=== PATIENT | female | born 1950 | race Caucasian/White ===

== ENCOUNTER 2020-11-04 21:34 | Inpatient (IN) | payer MEDICARE, SELFPAY ==
--- NOTE | ~2020-11-04 | XR_ITS ---
EXAMINATION: XR chest 1V portable EXAM DATE: 11/07/2020 09:50 INDICATION: Pneumonia, shortness of breath. TECHNIQUE: Portable AP frontal chest x-ray was obtained. Comparison is made to prior examination from 11/04/2020. FINDINGS: There has been improvement in the large amount of right upper lobe consolidation with small regions of cavitation, probably improving pneumonia. Follow-up is indicated to resolution to exclude any underlying chronic process such as cancer. Left lung is clear. There is no pneumothorax suspecte d. There are no pleural effusions. Cardiomediastinal silhouette is normal. There are no osseous abnor malities identified. IMPRESSION: Large right upper lobe cavitary consolidation, mild interval improvement. Follow-up to re solution. Reviewed, dictated and finalized at location B. NISTRATIVE SUPPORT TECHNICIAN IMPRESSION: Large right upper lobe cavitary consolidation, mild interval improv ement. Follow-up to resolution.
--- NOTE | ~2020-11-04 | CT_ITS ---
EXAMINATION: CTA chest PE protocol EXAM DATE: 11/04/2020 23:45 INDICATION: Hemoptysis, pneumonia, evaluate for PE . TECHNIQUE: Spiral CTA of the chest (pulmonary arteries) was performed with 100 cc Omnipaque 350 intr avenous contrast injection. Images were acquired during the pulmonary arterial phase. Coronal maxi mum intensity projection 3D-reconstructions were created by the technologist on dedicated workstation . Axial, coronal and sagittal reformatted images were reviewed. The dose-length product (DLP) for t his examination was 182.25 mGy-cm. The exposure was tailored according to patient size (auto mA exp osure control), and iterative reconstruction (ASIR) was used as additional dose reduction technique. Comparison is made to prior examination from CT thorax 2013. FINDINGS: Pulmonary arteries are well opacified and without intraluminal filling defects. No thora cic aortic dissection. There is extensive right upper lobe confluent airspace disease with regions o f cavitation. There is smaller amount of right lower lobe airspace disease, the same process. No evid ence of chest wall invasion. Most likely necrotic pneumonia, but follow-up is indicated to exclude po ssibility of cancer. There is moderate emphysema. There are no pleural or pericardial effusions. T racheobronchial tree is patent. There is no mediastinal, hilar or axillary lymphadenopathy. There is no pneumothorax. Heart normal in size. The upper abdomen demonstrates 2 peripherally partiall y calcified internally fluid density regions measuring about 1.5 cm, likely benign. One of these was imaged on prior study and is unchanged There is thoracic spondylosis without osteoblastic or osteoly tic lesions identified. IMPRESSION: 1. Multi segmental right upper lobe, subsegmental right lower lobe airspace disease appearance most consistent with necrotic pneumonia. Follow-up exam is indicated to exclude any underlying cancer. 2. Moderate emphysema. 3. No pulmonary emboli. Reviewed, dictated and finalized at location G. CHASER IMPRESSION: 1. Multi segmental right upper lobe, subsegmental right lower lobe airspace di sease appearance most consistent with necrotic pneumonia. Follow-up exam is ind icated to exclude any underlying cancer. 2. Moderate emphysema. 3. No pulmonary emboli.
--- NOTE | ~2020-11-04 | XR_ITS ---
EXAMINATION: XR chest 2V EXAM DATE: 11/04/2020 22:15 INDICATION: Coughing up blood, diaphoretic. TECHNIQUE: Frontal and lateral projections of the chest obtained and reviewed. Comparison is made to prior examination from 10/13/2012. FINDINGS: There is extensive right upper lobe opacity with apical capping, probably regions of cavit ation. There is some rightward mediastinal, tracheal deviation, indicating some component of fibrosis to this region. Differential diagnosis includes chronic infectious process, acute on chronic infecti on, and cancer. This is new compared to 2013. Left lung is clear. Cardiomediastinal silhouette is normal. There is no pneumothorax suspected. There are no pleural effusions. There are no osseous abnormalities identified. IMPRESSION: Large amount of right upper lobe airspace disease, could be chronic infection, acute on chronic infection, or cancer. A follow-up chest CT with contrast should be obtained. Reviewed, dictated and finalized at location A. ONAL ASSISTANT IMPRESSION: Large amount of right upper lobe airspace disease, could be chroni c infection, acute on chronic infection, or cancer. A follow-up chest CT with c ontrast should be obtained.
[2020-11-04 21:42] VITALS: BP 112/71; PULSE 99; RESP 16; TEMP 36.1; O2SAT 86
--- NOTE | 2020-11-04 21:55 | ECG_ITS ---
Measurements Intervals [place] Rate: 80 P: 64 LA: 156 QRS: 53 QRSD: 71 T: 51 QT: 391 QTc: 454 Interpretive Statements SINUS RHYTHM BORDERLINE ST-T WAVE ABNORMALITY- ANT/INF LEADS BASELINE ARTIFACT- I, II, III, AVR, AVL, AVF, V1-V6 BORDERLINE ECG Electronically Signed On 11-05-2020 8:01:29 LEGAL MEDIATOR by Cal Starr D.O.
--- NOTE | 2020-11-04 22:15 | PC.NURSE ---
pt to xray at this time
[2020-11-04 22:35] LABS: Basophils Absolute Auto 0.1 K/mm3 (0.0-0.1); Basophils Percent Auto 0.4 % (0.2-1.2); Eosinophils Percent Auto 0.3 % (0-4.4); Hematocrit 32.5 % (37.0-47.0); Hemoglobin 10.6 g/dL (12.0-15.0); INR 1.2; Immature Granulocyte Absolute 0.07 K/mm3 (0.00-0.031); Immature Granulocyte Percent A 0.5 % (0-0.5); Lymphocytes Absolute Auto 3.13 K/mm3 (0.9-3.2); Lymphocytes Percent Auto 22.7 % (18.3-44.2); Mean Corpuscular HGB Conc 32.6 g/dl (32-36); Mean Corpuscular Hemoglobin 30.6 pg (26-34); Mean Corpuscular Volume 93.9 fl (80-100); Mean Platelet Volume 9.5 fl (7.4-10.4); Monocytes Absolute Auto 0.8 K/mm3 (0.1-0.6); Monocytes Percent Auto 5.7 % (2.6-8.5); Neutrophils Absolute Auto 9.7 K/mm3 (1.3-6.7); Neutrophils Percent Auto 70.4 % (45.5-73.1); Platelet Count Result 268 k/mm3 (150-375); Prothrombin Time 15.5 Seconds (11.1-14.7); Red Blood Count 3.46 M/mm3 (4.2-5.4); Red Cell Distribution Width 14.7 % (11.5-14.5); White Blood Count 13.8 K/mm3 (4.5-10.0)
[2020-11-04 22:36] LABS: Partial Thromboplastin Time 38.2 SECONDS (22.3-36.8)
[2020-11-04 22:43] LABS: Anion Gap 2 mmol/L (8-16); Blood Urea Nitrogen 11 mg/dL (7-17); Calcium 7.1 mg/dL (8.4-10.2); Carbon Dioxide 38 mmol/L (22-30); Chloride 93 mmol/L (98-107); Estimated Glomerular Filt Rate > 60; Glucose 140 mg/dL (65-105); Potassium 2.6 mmol/L (3.4-5.0); Sodium 133 mmol/L (137-145)
[2020-11-04 23:17] VITALS: BP 131/85; PULSE 95; RESP 16; O2SAT 96
[2020-11-04] MEDS: POTASSIUM CHLORIDE 20 MEQ PACKET (FOR LIQUID) 40 MEQ PO (23:21)
[2020-11-05] VITALS (14 sets, daily range): BP systolic 92–128; BP diastolic 68–79; PULSE 75–97; RESP 16–20; TEMP 36.1–36.7; O2SAT 92–98; BMI 20.5
[2020-11-05] MEDS: SODIUM CHLORIDE 0.9% IV 500 ML 999 ML IV CONT (00:47)
--- NOTE | 2020-11-05 01:30 | PC.NURSE ---
Pt c/o burning at IV site where KCL is running. Okay per MD to run with IV fluids and slow down rate. Rate slowed down to 85mls/hr. Pt notes relief.
--- NOTE | 2020-11-05 01:49 | ED.GENADULT ---
HPI - General Adult General Chief complaint: Unspecified Stated complaint: coughing up blood Time Seen by Provider: 11/04/20 23:10 History of Present Illness HPI narrative: Patient is 69-year-old female who presents the emergency department with chief complaint of hemoptysis. The patient reports that recently she was seen at [facility] and was to be admitted at that facility for a pneumonia versus lung mass. The patient states she has been coughing up blood and because they were going to place her on a Covid observation unit she decided to sign out AGAINST MEDICAL ADVICE. Patient states that she was treated with some oral antibiotics but stated that she is continued to have hemoptysis. Patient states that she came to our facility today because this is continued on and she is concerned about Related Data Home Medications Medication Instructions Recorded Confirmed aspirin 81 mg tablet,delayed 81 mg PO DAILY 08/18/19 06/06/20 release duloxetine 60 mg capsule,delayed 60 mg PO DAILY 08/18/19 06/06/20 release fentanyl 100 mcg/hr transdermal 1 patch TRANSDERM Q72H 08/18/19 06/06/20 patch gabapentin 800 mg tablet 800 mg PO BID 08/18/19 06/06/20 oxycodone-acetaminophen 10 mg-325 1 tablet PO Q6H PRN tablet 08/18/19 06/06/20 mg tablet Allergies Allergy/AdvReac Type Severity Reaction Status Date / Time amoxicillin Allergy Unknown Unknown Verified 09/19/20 14:38 erythromycin base Allergy Unknown Unknown Verified 09/19/20 14:38 lisinopril Allergy Unknown cough Verified 09/19/20 14:38 nitrofurantoin Allergy Unknown Unknown Verified 09/19/20 14:38 Review of Systems Review of Systems: Narrative: A 10 system review of systems was completed on the patient and is negative except for what is stated in the HPI. Nursing and ancillary documentation was reviewed. [facility] Past Medical History Medical History (Updated 11/05/20 @ 01:57 by Andi Iverson MD) H/O cyst of breast Surgical History Surgical History H/O cardiac catheterization H/O dilation and curettage H/O tubal ligation Hx of cholecystectomy Family History Family History Mother Diabetes mellitus Family history of coronary artery disease Father Family history of alcoholism Social History Social History Smoking status: Former smoker Alcohol intake: never Comments Patient has history of melanoma on her back that she had excised and then treated with chemotherapy Exam Narrative: Exam Narrative: GENERAL: Well-appearing, well-nourished, and in no acute distress. HEAD: Normocephalic, atraumatic. EYES: PERRLA and EOMI. ENT: Nares clear, no rhinorrhea or epistaxis. Mucous membranes moist. NECK: Supple. CHEST: Clear to auscultation. No respiratory distress. HEART: Regular rate and rhythm. No murmur heard. Normal peripheral pulses. ABDOMEN: Soft, nontender, nondistended, normal active bowel sounds. EXTREMITIES: Normal range of motion. No edema. SKIN: Warm, dry, no rash. NEURO: No focal deficits. Alert and oriented x3. PSYCH: Normal mood and affect. Course Course Emergency Course: CTA of the chest showed evidence of a necrotic pneumonia Vital Signs Vital signs: Vital Signs Temperature 36.1 C L 11/04/20 21:42 Pulse Rate 99 11/04/20 21:42 Respiratory Rate 16 11/04/20 21:42 Blood Pressure 112/71 11/04/20 21:42 Pulse Oximetry 86 L 11/04/20 21:42 Temperature 36.1 C L 11/04/20 21:42 Pulse Rate 95 11/04/20 23:17 Respiratory Rate 16 11/04/20 23:17 Blood Pressure 131/85 11/04/20 23:17 Pulse Oximetry 96 11/04/20 23:17 Medical Decision Making Vital Signs Vital Signs: Vital Signs Temperature 36.1 C L 11/04/20 21:42 Pulse Rate 99 11/04/20 21:42 Respiratory Rate 16 11/04/20 21:42 Blood Pressure 112/71 11/04
--- NOTE | 2020-11-05 03:32 | PC.NURSE ---
KCL still running at time of admission. Receiving nurse notified. Also unable to collect 2nd set of blood cultures at this time. Attempts x2 in ED. notified.
--- NOTE | 2020-11-05 03:45 | PC.NURSE ---
This patient, Yas Haywood, was admitted to 3 [facility] Surg Room 319-01. Patient/family oriented to hospital policies and general routines including ID bracelet, bed and alarms, visiting hours, pain management, procedures, bathroom and other care routines, personal items, smoking policy, room service/diet, and visiting hours. Information on how to activate the Rapid Response Team has been discussed. Patient/Family are encouraged to report perceived risks to care and to ask questions if they do not understand what they are told or what they should do.
[2020-11-05] MEDS: CLINDAMYCIN 600 MG/NS 50 ML 600 MG/50 ML PIGGYBACK 100 MG IVPB (06:19)
[2020-11-05 07:39] LABS: Glucose Point of Care 112 (65-105)
--- NOTE | 2020-11-05 08:38 | PM.IMHP ---
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 She is a poor historian and is unable to provide many details regarding her hospitalization, simply stating I haven't been feeling good for a while. She requested I call her who would be better able to provide information. He reports that on 09/17/20, she began having intermittent hemoptysis. She was hospitalized in early October at an outside facility for right upper lobe pneumonia, but was also informed this may be a recurrence of her lung cancer. It was recommended she have a bronchoscopy, however she did not wish to proceed with this and left against medical advice. She discussed with her PCP who advised that she seek emergency care so that she may be admitted to the hospital for further evaluation. Her hemoptysis persisted. She also had productive cough. She has not had fevers or chills. She denies shortness of breath, orthopnea, PND, chest pain, or palpitations. Review of Systems Review of Systems: Narrative: Her reports that she has lost 5-8 pounds in about 2 months. She reports poor appetite. No abdominal pain, nausea, vomiting, fever or chills. No recent travel. No anosmia or dysguesia. No known covid-19 contacts. Denies dysuria, hematuria, urgency, frequency. Last BM was 1 day ago. Denies diarrhea. She denies headaches. Denies myalgia. She denies depression. She is quite anxious. She complains of shakiness that she said began after having a breathing treatment. She reports being nervous about being in the hospital and away from her . [facility] Past Medical History Medical History (Updated 11/05/20 @ 11:01 by Jovita Snyder PA-C) CAD (coronary artery disease) With stents a few years ago DM w/o complication type II, uncontrolled Essential (primary) hypertension H/O cyst of breast Hyperlipidemia Malignant melanoma metastatic to lung Peripheral neuropathy Surgical History Surgical History H/O cardiac catheterization H/O dilation and curettage H/O tubal ligation Hx of cholecystectomy Family History Family History (Updated 11/05/20 @ 11:05 by Jovita Snyder PA-C) Mother Diabetes mellitus Family history of coronary artery disease Father Family history of alcoholism Son Aortic aneurysm Social History Social History (Updated 11/05/20 @ 13:21 by Jovita Snyder PA-C) Social History: Ms. Haywood lives at home with her . She is independent in her ADLs. She designates her as her surrogate decision maker and would like to be a DNR. She has two sons, one of whom several years ago. Smoking packs per day: 0.5 Smoking cigarettes per day: 10.0 Years smoked: 30 Smoking pack-years: 15.00 Smoking status: Former smoker Tobacco type: cigarettes Alcohol intake: former Substance use: never Living arrangements: with family Occupation/Education: retired Gender identity (if verbalized by the patient): Female Spiritual care concerns: No Meds Home Medications and Allergies Home Medications Medication Instructions Recorded Confirmed Type aspirin 81 mg tablet,delayed 81 mg PO DAILY 08/18/19 11/05/20 History release duloxetine 60 mg capsule,delayed 60 mg PO DAILY 08/18/19 11/05/20 History release gabapentin 800 mg tablet 800 mg PO BID 08/18/19 11/05/20 History oxycodone-acetaminophen 10 mg-325 1 tablet PO Q6H PRN tablet 08/18/19 11/05/20 History mg tablet blood sugar diagnostic #100 each 11/04/1911/05
[2020-11-05] MEDS: IPRATROPIUM BR 0.02% INH SOLN 0.5 MG/2.5 ML VIAL INHALATION ×3 (09:05→20:48)
[2020-11-05] MEDS: ALBUTEROL SULFATE NEB 2.5 MG/0.5 ML INH 5 MG INHALATION ×3 (09:05→20:48)
[2020-11-05 10:03] LABS: Alanine Aminotransferase 11 U/L (4-35); Albumin Level 2.8 g/dL (3.5-5.1); Alkaline Phosphatase 93 U/L (38-126); Anion Gap 2 mmol/L (8-16); Aspartate Amino Transferase 22 U/L (14-36); Bilirubin,Total 0.5 mg/dL (0.2-1.3); Blood Urea Nitrogen 9 mg/dL (7-17); Calcium 6.8 mg/dL (8.4-10.2); Carbon Dioxide 33 mmol/L (22-30); Chloride 97 mmol/L (98-107); Estimated CRCL calculation 76 ml/min; Estimated Glomerular Filt Rate > 60; Glucose 88 mg/dL (65-105); Magnesium 0.7 mg/dL (1.6-2.3); Potassium 3.4 mmol/L (3.4-5.0); Sodium 132 mmol/L (137-145)
[2020-11-05] MEDS: LEVOTHYROXINE SODIUM 100 MCG TABLET PO (10:06)
[2020-11-05] MEDS: ENOXAPARIN 40 MG/0.4 ML SYRINGE SUB-Q (10:06)
[2020-11-05] MEDS: CLOPIDOGREL BISULFATE 75 MG TABLET PO (10:06)
[2020-11-05] MEDS: ASPIRIN 81 MG ENTERIC TABLET PO (10:06)
[2020-11-05] MEDS: METOPROLOL SUCCINATE EXT REL 100 MG TABCR PO (10:07)
[2020-11-05] MEDS: PANTOPRAZOLE 40 MG TABLET PO (10:07)
[2020-11-05] MEDS: ROSUVASTATIN 10 MG TABLET PO (10:07)
[2020-11-05 10:12] LABS: Basophils Percent Auto 0.3 % (0.2-1.2); Eosinophils Percent Auto 0.3 % (0-4.4); Hematocrit 31.8 % (37.0-47.0); Hemoglobin 10.2 g/dL (12.0-15.0); Immature Granulocyte Absolute 0.13 K/mm3 (0.00-0.031); Lymphocytes Absolute Auto 3.54 K/mm3 (0.9-3.2); Mean Corpuscular HGB Conc 32.1 g/dl (32-36); Mean Corpuscular Hemoglobin 30.1 pg (26-34); Mean Corpuscular Volume 93.8 fl (80-100); Mean Platelet Volume 9.7 fl (7.4-10.4); Monocytes Absolute Auto 0.7 K/mm3 (0.1-0.6); Monocytes Percent Auto 5.3 % (2.6-8.5); Neutrophils Absolute Auto 8.7 K/mm3 (1.3-6.7); Neutrophils Percent Auto 66.1 % (45.5-73.1); Platelet Count Result 267 k/mm3 (150-375); Red Blood Count 3.39 M/mm3 (4.2-5.4); Red Cell Distribution Width 14.6 % (11.5-14.5); White Blood Count 13.1 K/mm3 (4.5-10.0)
[2020-11-05 11:49] LABS: Glucose Point of Care 167 (65-105)
[2020-11-05] MEDS: MAGNESIUM SULF 2 GM/WATER 50ML 2 GM/50 ML BAG IVPB (12:28)
[2020-11-05] MEDS: POTASSIUM CHLORIDE 20 MEQ TABLET PO (12:28)
--- NOTE | 2020-11-05 15:25 | PM.CNPUL ---
Assessment and Plan Assessment and plan (1) Community acquired bacterial pneumonia: Code(s): J15.9 - Unspecified bacterial pneumonia Status: Acute Assessment and Plan: right-sided extensive upper lobe and right lower lobe pneumonia. She was started on Levaquin and clindamycin on admission but I prefer to keep the Levaquin, discontinue clindamycin and start vancomycin. Sputum culture will be ordered as well as urine pneumococcal antigen and Legionella urine antigen. Will continue to monitor. I see no evidence of endobronchial lesions on CT of the chest and no evidence of metastatic disease although cannot be completely sure that nothing is hiding in the pneumonia. History of Present Illness History of Present Illness Consult date: 11/05/20 Chief complaint: necrotic pneumonia Narrative: this is a pleasant 69-year-old female with a history of COPD, melanoma, chronic pain, hyperlipidemia, coronary artery disease status post PCI with 4 stents placed in the past Who presents with mild hemoptysis. She had a CT of the chest which showed no pulmonary embolism but extensive right upper lobe pneumonia with a right lower lobe infiltrate as well. It was reported as necrotizing pneumonia but clinically she is not presenting that way.She describes the hemoptysis as a quarter-size which is not very significant but it did start out with a productive cough at 1st. She denies loss of taste or smell, fevers, chills, night sweats or nausea or vomiting. She last had chemotherapy about 10 months ago for melanoma. She says the melanoma may have spread to her lungs and that it was being followed with outside imaging but she was not very clear. Review of Systems Review of Systems: All systems reviewed & are unremarkable except as noted in HPI and below PMFSH Past Medical History Medical History (Updated 11/06/20 @ 16:26 by Jovita Snyder PA-C) CAD (coronary artery disease) With stents a few years ago DM w/o complication type II, uncontrolled Essential (primary) hypertension H/O cyst of breast Hyperlipidemia Hypothyroidism Malignant melanoma metastatic to lung Peripheral neuropathy Surgical History Surgical History H/O cardiac catheterization H/O dilation and curettage H/O tubal ligation Hx of cholecystectomy Family History Family History (Updated 11/05/20 @ 11:05 by Jovita Snyder PA-C) Mother Diabetes mellitus Family history of coronary artery disease Father Family history of alcoholism Son Aortic aneurysm Social History Social History (Updated 11/05/20 @ 13:21 by Jovita Snyder PA-C) Social History: Ms. Haywood lives at home with her . She is independent in her ADLs. She designates her as her surrogate decision maker and would like to be a DNR. She has two sons, one of whom several years ago. Smoking packs per day: 0.5 Smoking cigarettes per day: 10.0 Years smoked: 30 Smoking pack-years: 15.00 Smoking status: Former smoker Tobacco type: cigarettes Alcohol intake: former Substance use: never Living arrangements: with family Occupation/Education: retired Gender identity (if verbalized by the patient): Female Spiritual care concerns: No Meds Home Medications and Allergies Home Medications Medication Instructions Recorded Confirmed Type aspirin 81 mg tablet,delayed 81 mg PO DAILY 08/18/19 11/05/20 History release duloxetine 60 mg capsule,delayed 60 mg PO DAILY 08/18/19 11/05/20 History release gabapentin 800 mg tablet 800 mg PO BID 08/18/19 11/05/20 History oxycodone-acetaminophen 10 mg-325 1 tablet PO Q6H PRN tablet 08/18/19 11/05/20 History mg tablet blood sugar diagnostic #100 each 11/04/19 11/05/20 Rx clopidogrel 75 mg tablet 75 mg PO DAILY #90 tablet 11/09/19 11/05/20 Rx trazodone 50 mg tablet 50 mg PO .qhs #90 tablet 01/04/20 11/05/20 Rx amadou
[2020-11-05 17:20] LABS: Glucose Point of Care 114 (65-105)
[2020-11-05 19:10] LABS: SARS-CoV-2 RNA PCR Negative
[2020-11-05] MEDS: guaiFENesin 12 HR 600 MG TABCR PO (21:43)
[2020-11-05 21:58] LABS: Glucose Point of Care 123 (65-105)
[2020-11-06] VITALS (12 sets, daily range): BP systolic 136–143; BP diastolic 76–87; PULSE 74–94; RESP 16–20; TEMP 36.6–37; O2SAT 92–97
[2020-11-06] MEDS: IPRATROPIUM BR 0.02% INH SOLN 0.5 MG/2.5 ML VIAL INHALATION ×4 (01:59→21:24)
[2020-11-06] MEDS: ALBUTEROL SULFATE NEB 2.5 MG/0.5 ML INH 5 MG INHALATION ×4 (01:59→21:23)
[2020-11-06 06:34] LABS: Basophils Percent Auto 0.3 % (0.2-1.2); Eosinophils Percent Auto 0.1 % (0-4.4); Hematocrit 31.4 % (37.0-47.0); Hemoglobin 9.9 g/dL (12.0-15.0); Immature Granulocyte Absolute 0.11 K/mm3 (0.00-0.031); Immature Granulocyte Percent A 1.2 % (0-0.5); Lymphocytes Absolute Auto 2.24 K/mm3 (0.9-3.2); Lymphocytes Percent Auto 23.8 % (18.3-44.2); Mean Corpuscular HGB Conc 31.5 g/dl (32-36); Mean Corpuscular Hemoglobin 29.6 pg (26-34); Mean Platelet Volume 9.4 fl (7.4-10.4); Monocytes Absolute Auto 0.4 K/mm3 (0.1-0.6); Monocytes Percent Auto 4.5 % (2.6-8.5); Neutrophils Absolute Auto 6.6 K/mm3 (1.3-6.7); Neutrophils Percent Auto 70.1 % (45.5-73.1); Platelet Count Result 244 k/mm3 (150-375); Red Blood Count 3.34 M/mm3 (4.2-5.4); Red Cell Distribution Width 14.6 % (11.5-14.5); White Blood Count 9.4 K/mm3 (4.5-10.0)
[2020-11-06] MEDS: LEVOTHYROXINE SODIUM 100 MCG TABLET PO (06:43)
[2020-11-06 06:55] LABS: Alanine Aminotransferase 12 U/L (4-35); Albumin Level 2.7 g/dL (3.5-5.1); Alkaline Phosphatase 82 U/L (38-126); Anion Gap 5 mmol/L (8-16); Aspartate Amino Transferase 21 U/L (14-36); Bilirubin,Total 0.4 mg/dL (0.2-1.3); Blood Urea Nitrogen 6 mg/dL (7-17); Calcium 7.4 mg/dL (8.4-10.2); Carbon Dioxide 33 mmol/L (22-30); Chloride 97 mmol/L (98-107); Estimated CRCL calculation 76 ml/min; Estimated Glomerular Filt Rate > 60; Glucose 153 mg/dL (65-105); Potassium 3.5 mmol/L (3.4-5.0); Sodium 135 mmol/L (137-145)
[2020-11-06 07:26] LABS: Hemoglobin A1C 5.7 % (<5.7)
[2020-11-06 07:33] LABS: Glucose Point of Care 139 (65-105)
[2020-11-06] MEDS: ASPIRIN 81 MG ENTERIC TABLET PO (09:11)
[2020-11-06] MEDS: PANTOPRAZOLE 40 MG TABLET PO (09:11)
[2020-11-06] MEDS: guaiFENesin 12 HR 600 MG TABCR PO ×2 (09:11→20:54)
[2020-11-06] MEDS: ENOXAPARIN 40 MG/0.4 ML SYRINGE SUB-Q (09:11)
[2020-11-06] MEDS: METOPROLOL SUCCINATE EXT REL 100 MG TABCR PO (09:11)
[2020-11-06] MEDS: ROSUVASTATIN 10 MG TABLET PO (09:12)
[2020-11-06] MEDS: CLOPIDOGREL BISULFATE 75 MG TABLET PO (09:12)
[2020-11-06 09:44] LABS: Magnesium 1.3 mg/dL (1.6-2.3)
[2020-11-06 11:54] LABS: Glucose Point of Care 161 (65-105)
--- NOTE | 2020-11-06 15:52 | PM.IMPN ---
Progress Note: A&P Assessment and Plan (1) Necrotic pneumonia: Code(s): J85.0 - Gangrene and necrosis of lung Status: Acute Assessment and Plan: CTA showed multi segmental extensive right upper lobe confluent airspace disease most consistent with necrotic pneumonia. She is afebrile. She is maintaining adequate O2 saturations on room air. Continue Vancomycin and Levaquin pulmonology has been consulted and input is appreciated sputum culture pending. preliminary blood cultures with NGTD. urinary Legionella and pneumococcal antigens pending Supportive care to include bronchodilators, expectorants, antipyretics, incentive spirometry supplemental O2 as needed with goal saturation 90% or above (2) Malignant melanoma metastatic to lung: Code(s): C43.9 - Malignant melanoma of skin, unspecified; C78.00 - Secondary malignant neoplasm of unspecified lung Status: Acute Assessment and Plan: She has a history of melanoma with metastases to lung and has completed chemotherapy and Keytruda. Unable to recall timeline for this but thinks this was about 5 years ago. Since then, she has followed up with an oncologist at [place]. She was scheduled for surveillance imaging on 10/24/2020, however this was rescheduled due to COVID restrictions. Based on CTA, malignancy cannot be excluded. She was recommended to obtain bronchoscopy at last hospitalization earlier this month. Appreciate pulmonology consultation (3) Hypokalemia: Code(s): E87.6 - Hypokalemia Status: Acute Assessment and Plan: Potassium low on presentation at 2.6. Improved following supplementation. Likely due to poor PO intake. K 3.5 this morning. Give 20 mEq KCl PO. Monitor BMP (4) Hypomagnesemia: Code(s): E83.42 - Hypomagnesemia Status: Acute Assessment and Plan: Magnesium was low at 0.7 upon presentation. She received 2 g IV magnesium and improved to 1.3 Administer 2 g IV magnesium Monitor mag daily. (5) DM w/o complication type II, uncontrolled: Code(s): E11.65 - Type 2 diabetes mellitus with hyperglycemia Status: Acute Assessment and Plan: Last A1c 5.6 in June 2020. Blood sugars are well controlled. Initiate Accu-Cheks ACHS, SSI, hypoglycemic protocol Check updated A1c (6) Essential (primary) hypertension: Code(s): I10 - Essential (primary) hypertension Status: Acute Assessment and Plan: BP reviewed and is well controlled. Last BP 138/87. Continue metoprolol Monitor BP daily (7) Hypothyroidism: Code(s): E03.9 - Hypothyroidism, unspecified Status: Acute Assessment and Plan: Continue levothyroxine. 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 She reports she is feeling well today and has no complaints. She denies shortness of breath. She is still coughing pretty frequently and reports that she had some sputum production today. She denies hemoptysis. Denies wheezing, orthopnea, or PND. No chest pain or palpitations. She does feel very weak but reports that she has been able to ambulate without difficulty and denies dizziness or lightheadedness. She slept well last night. She has abdominal pain, nausea, vomiting, fever, chills myalgias, numbness, tingling, headache, or confusion. She is very eager to return home. Her is present at the bedside during interview and exam. Review of Systems Review of Systems: All systems reviewed & are unremarkable except as noted in HPI and below Exam Narrative: Exam Narrative: Ms. Mcbride is a well-nourished,
[2020-11-06] MEDS: POTASSIUM CHLORIDE 20 MEQ TABLET PO (15:59)
--- NOTE | 2020-11-06 16:33 | PM.PNPUL ---
Progress Note: A&P Assessment and Plan (1) Community acquired bacterial pneumonia: Code(s): J15.9 - Unspecified bacterial pneumonia Status: Acute Assessment and Plan: Continue Levaquin and vancomycin for a few more days and if clinically improving can switch to oral antibiotics to be discharged home. (2) Hemoptysis: Code(s): R04.2 - Hemoptysis Status: Acute Assessment and Plan: Has resolved. Anti-platelet or anti coagulation therapy can be resumed tomorrow if no further hemoptysis by that time. 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 Subjective Date/time seen: 11/06/20 16:33 Interval history: She is feeling better today. Hemoptysis has resolved. White count is coming down from admission. The rest of her vitals appear to be stable. She asked about going home but I told her given the extent of her pneumonia she should continue to have IV antibiotics for a few more days before converting to oral therapy. Review of Systems Review of Systems: All systems reviewed & are unremarkable except as noted in HPI and below Exam Const: General: cooperative, healthy appearing, comfortable, no acute distress, well developed, alert, awake and Physically active Nutritional Appearance: average body habitus and well nourished Orientation/consciousness: oriented to person, oriented to place, oriented to time and patient oriented x3 HENMT: Head: normal to inspection, normocephalic and atraumatic Eyes: General: appearance normal, both eyes and all related structures Neck: Neck: normal visual inspection, trachea midline and supple Resp: Effort & Inspection: normal respiratory effort and able to speak in complete sentences Auscultation: no crackles, no rales, no rhonchi, no wheezes and diminished lung sounds Cardio: Jugular venous distension: no JVD Rate: regular rate Rhythm: regular rhythm Heart sounds: S1 normal heart sound present and S2 normal heart sound present GI: Inspection: normal to inspection Auscultation: normal bowel sounds Skin: General skin exam: normal color and no rashes or lesions noted Neuro: General: oriented to person, oriented to place and Normal light touch and pain sensation Extrem: General: no clubbing, cyanosis or edema Psych: Appearance: grossly normal and well kempt Mental Status: mental status grossly normal Objective Data Vital Signs Vital Signs: Vital Signs - 24 hr 11/05/20 20:00 11/05/20 20:48 11/05/20 20:58 Temperature 36.6 C Pulse Rate 90 83 91 Respiratory Rate 20 18 20 Blood Pressure 128/78 Pulse Oximetry 93 95 11/06/20 01:59 11/06/20 02:07 11/06/20 05:42 Temperature 36.7 C Pulse Rate 87 84 86 Respiratory Rate 18 18 20 Blood Pressure 138/87 Pulse Oximetry 94 11/06/20 08:46 11/06/20 09:00 11/06/20 09:11 Temperature Pulse Rate 77 84 77 Respiratory Rate 20 20 Blood Pressure Pulse Oximetry 92 11/06/20 14:00 11/06/20 15:32 11/06/20 15:42 Temperature 37.0 C Pulse Rate 77 75 80 Respiratory Rate 16 20 20 Blood Pressure 143/83 H Pulse Oximetry 97 Intake/Output Intake/Output: Intake & Output 11/03/20 11/04/20 11/05/20 11/06/20 23:59 23:59 23:59 23:59 Intake Total 2110 1380 Output Total 200 400 Balance 1910 980 Meds/Results Medications: Active Medications Generic Name Dose Route Start Last Admin Trade Name Freq PRN Reason Stop Dose Admin Albuterol 5 mg 11/05/20 08:00 11/06/20 15:31 Albuterol Sulfate Neb 2.5 Mg/0.5 Ml Inh INHALATION 5 mg Q6HRT [place] Administration Aspirin 81 mg 11/05/20 09:00 11/06/20 09:11 Aspirin 81 Mg Enteric Tablet PO 81 mg DAILY M[place]ISON Administration Clopidogrel Bisulfa
[2020-11-06] MEDS: MAGNESIUM SULF 2 GM/WATER 50ML 2 GM/50 ML BAG IVPB (17:21)
[2020-11-06 17:26] LABS: Glucose Point of Care 109 (65-105)
[2020-11-06 17:37] LABS: Vancomycin Trough 8.5 ug/mL (10.0-20.0)
[2020-11-07] MEDS: ALBUTEROL SULFATE NEB 2.5 MG/0.5 ML INH 5 MG INHALATION ×2 (02:58→09:46)
[2020-11-07 02:59] VITALS: PULSE 87; RESP 18
[2020-11-07] MEDS: IPRATROPIUM BR 0.02% INH SOLN 0.5 MG/2.5 ML VIAL INHALATION ×2 (02:59→09:46)
[2020-11-07 03:06] VITALS: PULSE 86; RESP 18
[2020-11-07] MEDS: LEVOTHYROXINE SODIUM 100 MCG TABLET PO (05:55)
[2020-11-07 06:00] VITALS: BP 135/73; PULSE 79; RESP 20; TEMP 36.4; O2SAT 97
[2020-11-07 06:31] LABS: Estimated CRCL calculation 76 ml/min; Estimated Glomerular Filt Rate > 60
[2020-11-07 08:14] LABS: Glucose Point of Care 108 (65-105)
[2020-11-07 09:37] VITALS: PULSE 77
[2020-11-07] MEDS: ENOXAPARIN 40 MG/0.4 ML SYRINGE SUB-Q (09:37)
[2020-11-07] MEDS: ASPIRIN 81 MG ENTERIC TABLET PO (09:37)
[2020-11-07] MEDS: guaiFENesin 12 HR 600 MG TABCR PO (09:37)
[2020-11-07] MEDS: CLOPIDOGREL BISULFATE 75 MG TABLET PO (09:37)
[2020-11-07] MEDS: ROSUVASTATIN 10 MG TABLET PO (09:37)
[2020-11-07] MEDS: METOPROLOL SUCCINATE EXT REL 100 MG TABCR PO (09:37)
[2020-11-07] MEDS: PANTOPRAZOLE 40 MG TABLET PO (09:37)
[2020-11-07 09:47] VITALS: PULSE 83; RESP 18
[2020-11-07 09:52] VITALS: PULSE 83; RESP 18
[2020-11-07 10:13] LABS: Hematocrit 29.5 % (37.0-47.0); Hemoglobin 9.4 g/dL (12.0-15.0); Mean Corpuscular HGB Conc 31.9 g/dl (32-36); Mean Corpuscular Hemoglobin 29.7 pg (26-34); Mean Corpuscular Volume 93.1 fl (80-100); Mean Platelet Volume 9.6 fl (7.4-10.4); Platelet Count Result 215 k/mm3 (150-375); Red Blood Count 3.17 M/mm3 (4.2-5.4); Red Cell Distribution Width 14.6 % (11.5-14.5); White Blood Count 6.6 K/mm3 (4.5-10.0)
[2020-11-07 10:26] LABS: Anion Gap 3 mmol/L (8-16); Blood Urea Nitrogen 5 mg/dL (7-17); Calcium 7.1 mg/dL (8.4-10.2); Carbon Dioxide 33 mmol/L (22-30); Chloride 97 mmol/L (98-107); Estimated CRCL calculation 76 ml/min; Estimated Glomerular Filt Rate > 60; Glucose 186 mg/dL (65-105); Magnesium 1.3 mg/dL (1.6-2.3); Potassium 3.2 mmol/L (3.4-5.0); Sodium 133 mmol/L (137-145)
--- NOTE | 2020-11-07 10:47 | PM.PNPUL ---
Progress Note: A&P Assessment and Plan (1) Community acquired bacterial pneumonia: Code(s): J15.9 - Unspecified bacterial pneumonia Status: Acute Assessment and Plan: Continue Levaquin and vancomycin while in house. On discharge would treat this as abscess and give levaquin for total 14 days and amoxicillin/clavulanate 875/125 1 tab BID for 4 weeks with follow up imaging to assess consiolidation and nmeed for continued antibiotics. Stable for discharge from pulmonary perspective today. (2) Hemoptysis: Code(s): R04.2 - Hemoptysis Status: Acute Assessment and Plan: Has resolved on 11/05. Anti-platelet or anti coagulation therapy can be resumed. 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 I spoke with patient about bronchscopy for continued RUL consolidation since 08/24/20 with history of metastatic melanoma to lung and she does not want bronchoscopy and wants to follow up with her oncologist Dr Newsome. She should have a follow-up CT of the chest in about 4-6 weeks. Subjective Date/time seen: 11/07/20 10:47 Interval history: 11/06 She is feeling better today. Hemoptysis has resolved. White count is coming down from admission. The rest of her vitals appear to be stable. She asked about going home but I told her given the extent of her pneumonia she should continue to have IV antibiotics for a few more days before converting to oral therapy. 11/07 Patient continues to improve clinically, states she is back to normal. RA sats 96-97%, WBC 6.6K, CXR with unchanged to minimally improved RUL consolidation. I spoke with patient about bronchsocopy for continued RUL consolidation since 08/24/20 with history of metastatic melanoma to lung and she does not want bronchoscopy and wants to follow up with her oncologist. Spoke with patient about melanoma on back s/p surgical resection 2001. In 2013 recurred on back and recieved chemo per Dr. Newsome ipilimumab 10/18/2014 through 12/21/2014 and on 12/16/2014 CT with progression of disease with bilateral pulmonary metastasis s/p 10 cycles of pembrolizumab last dose 07/19/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 Follow up in 12/[address] cancelled [address] for hemoptysis 08/24/20 with RUL consolidiation (on report) and singed out AMA from [facility] and treatd wtih antibiotics with resolution of hemoptysis for 2 weeks and then has returned. Primary instructed her to follow up with oncologist which did not occur. Review of Systems Review of Systems: All systems reviewed & are unremarkable except as noted in HPI and below Eyes: Eyes: Reports no additional eye complaints ENT: Reports system reviewed and no additional complaints, except as documented and Reports sinus pressure Cardiovascular: Cardiovascular: Reports no additional cardiovascular complaints Respiratory: Respiratory: Reports no additional respiratory complaints, Reports cough, Denies hemoptysis, Denies excessive phlegm production, Denies pain on inspiration, Denies pain with cough and Denies dyspnea Gastrointestinal: Gastrointestinal: Reports no additional gastrointestinal complaints Musculoskeletal: Musculoskeletal: Reports no additional musculoskeletal complaints Integumentary/Breasts: Skin/Breast: Reports system reviewed and no additional complaints, except as docu Neurologic: Reports system reviewed and no additional complaints, except as documented and Reports behavioral changes Psychiatric: Psychiatric: Reports no additional psychiatric complaints and Reports behavioral changes Endocrine: Endocrine: Reports no additional endocrine complaints Exam Const: General: cooperative and healthy appearing Orientation/consc
[2020-11-07 12:25] LABS: Glucose Point of Care 142 (65-105)
[2020-11-07] MEDS: MAGNESIUM SULF 2 GM/WATER 50ML 2 GM/50 ML BAG IVPB (13:12)
[2020-11-07] MEDS: POTASSIUM CHLORIDE 20 MEQ TABLET 40 MEQ PO (13:13)
--- NOTE | 2020-11-07 13:26 | PM.DS ---
DS: Admitting Diagnosis Admitting Diagnosis Admitting Diagnosis: Necrotic pneumonia DS: Discharge Diagnosis Discharge Diagnosis (1) Necrotic pneumonia: Code(s): J85.0 - Gangrene and necrosis of lung Status: Acute Assessment and Plan: CTA showed multi segmental extensive right upper lobe confluent airspace disease most consistent with necrotic pneumonia. She was afebrile. She maintained adequate O2 saturations on room air. She was treated with IV vancomycin and Levaquin. She was seen in consultation by pulmonology. preliminary sputum culture showed Gram-positive cocci in chains. preliminary blood cultures with NGTD and final cultures will be monitored. Urinary Legionella and pneumococcal antigens pending. Discussed case with claims adjuster supervisor who recommended extended course of oral antibiotics based on imaging and clinical findings. She will do p.o. Levaquin 750 mg daily x 14 days and clindamycin 300 mg q.6 hours x 28 days due to allergy to Augmentin. given this extended course, she was prescribed probiotic 3 times per day. she was stable for discharge from pulmonary perspective. She will need repeat chest CT in 4 weeks. Blood cultures and sputum cultures will be monitored and if antibiotic regimen requires adjustment, she will be contacted. 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 Unable to recall timeline for this but thinks this was about 5 years ago. Since then, she has followed up with an oncologist at [facility]. She was scheduled for surveillance imaging on 10/24/2020, however this was rescheduled due to COVID restrictions. Based on CTA, there is concern for recurrence of malignancy. she is to follow-up with her oncologist obtain repeat CT in 4 weeks. I contacted her oncologist office, Dr. Newsome at [facility], and left a message to inform them of patient's hospitalization and need for follow-up. (3) Hypokalemia: Code(s): E87.6 - Hypokalemia Status: Acute Assessment and Plan: Potassium was low, likely due to poor oral intake. Improved with supplementation. She will begin daily potassium supplement and repeat BMP in 1 week for further monitoring. Discussed with patient's PCP who will follow-up on labs. (4) Hypomagnesemia: Code(s): E83.42 - Hypomagnesemia Status: Acute Assessment and Plan: Magnesium was low and replaced. Levels improved. She will also begin daily p.o. magnesium supplementation with repeat Mag in 1 week. (5) DM w/o complication type II, uncontrolled: Code(s): E11.65 - Type 2 diabetes mellitus with hyperglycemia Status: Acute Assessment and Plan: A1c is 5.7. Blood sugars well controlled. she is not on insulin or other hypoglycemic agents. (6) Essential (primary) hypertension: Code(s): I10 - Essential (primary) hypertension Status: Acute Assessment and Plan: BP reviewed and was well controlled. Continue metoprolol (7) Hypothyroidism: Code(s): E03.9 - Hypothyroidism, unspecified Status: Acute Assessment and Plan: Continue levothyroxine. DS: Summary Hospital Course Reason for hospitalization: hemoptysis Hospital Course: date of admission: 11/05/2020 date of discharge: 11/07/2020 Yas Haywood is a 69 year old female with a history of malignant melanoma with metastases to the lung s/p chemotherapy and Keytruda, type 2 diabetes mellitus with peripheral not, hypertension, and hyperlipidemia who presented to the emergency department on 11/04/2020 with complaints of hemoptysis, ongoing approximately 1 month. she has recently been hospitalized at outside facility due to same complaints, and alfredo
[2020-11-09 12:49] LABS: Pneumococcal Antigen Urine Not Detected (Not Detected)
[2020-11-09 16:39] LABS: Legionella pneumophila Ag Ur Not Detected (Not Detected)
--- NOTE | 2020-11-11 10:38 | PC.NURSE ---
sputum cx normal marc
--- NOTE | 2020-11-16 11:24 | PC.NURSE ---
Blood cx are negative.
== END 2020-11-07 14:08 | disposition home or self-care (01) | DRG 178 ==
LOC: ANHED 11-05 01:57 → ANH3MEDSUR 11-05 06:56
PROVIDERS: Emergency Medicine; Internal Medicine Critical Care Medicine; Admitting Provider Internal Medicine; Emergency Provider Emergency Medicine; PCP Family Medicine; Visit Provider Physician Assistant
DX: J85.0 Gangrene and necrosis of lung (principal); C78.00 Secondary malignant neoplasm of unspecified lung; R04.2 Hemoptysis; Z20.822 Contact with and (suspected) exposure to COVID-19; C43.9 Malignant melanoma of skin, unspecified; E87.6 Hypokalemia; E83.42 Hypomagnesemia; E11.65 Type 2 diabetes mellitus with hyperglycemia; E11.42 Type 2 diabetes mellitus with diabetic polyneuropathy; I10 Essential (primary) hypertension; E78.5 Hyperlipidemia, unspecified; I25.10 Atherosclerotic heart disease of native coronary artery without angina pectoris; G89.29 Other chronic pain; Z66 Do not resuscitate; Z90.49 Acquired absence of other specified parts of digestive tract; Z95.5 Presence of coronary angioplasty implant and graft; Z87.891 Personal history of nicotine dependence
CPT/HCPCS: 36415; 71045; 71046; 71275; 80048; 80053; 80202; 82565; 82948; 83036; 83735; 85025; 85027; 85610; 85730; 86140; 87040; 87070; 87205; 87449; 87899; 93005; 94640; 96365; 96366; 99285; A9270; C9803; J1650; J1956; J3370; J3475; J3480; J7040; J7060; Q9967; U0003; U0005

== ENCOUNTER → 2020-12-20 15:02 | Outpatient (CLI) | payer MEDICARE, SELFPAY ==
--- NOTE | ~2020-12-20 | XR_ITS ---
EXAMINATION: XR hip LT min 2V, XR femur LT min 2V DATE: 12/20/2020 15:31 INDICATION: Left hip and leg pain post fall 2 weeks prior. TECHNIQUE: 1. Anteroposterior and frog-leg lateral views of the left hip were obtained. 2. Anteroposterior and lateral views of the left femur were obtained. COMPARISON: None. FINDINGS: Alignment is normal at the left hip and knee. No fracture. No suspected avascular necrosis at the lef t hip. Joint spaces appear relatively preserved at the bilateral sacroiliac, left hip and left knee j oints with tiny marginal osteophytes at the left acetabulum and patella consistent with minimal osteo arthritis. Soft tissues are unremarkable. No left knee joint effusion. IMPRESSION: 1. No fracture or other acute/subacute osseous abnormality. Reviewed, dictated and finalized at location B. IMPRESSION: 1. No fracture or other acute/subacute osseous abnormality.
== END ==
PROVIDERS: PCP Family Medicine; Visit Provider Family Medicine
DX: M79.605 Pain in left leg (principal); M25.552 Pain in left hip
CPT/HCPCS: 73502; 73552

== ENCOUNTER 2021-08-17 12:02 | Outpatient (CLI) | payer MEDICARE, SELFPAY ==
--- NOTE | ~2021-08-17 | XR_ITS ---
XR chest 2V 08/17/2021 12:22 Indication: Wheezing and dyspnea Procedure: PA and lateral views the chest Comparison: 11/07/2020 Findings: Heart size normal. There is right upper lobe scarring/pleural thickening. Heart size normal . No acute focal pneumonia, edema, pleural effusion or pneumothorax. No acute osseous abnormality. Impression: 1: No acute cardiopulmonary disease. 2: Chronic right upper lobe pleural parenchymal scarring. Reviewed, dictated and finalized at location B. ECUTTER HAND Impression: 1: No acute cardiopulmonary disease. 2: Chronic right upper lobe pleural parenchymal scarring.
== END 2021-08-17 12:03 | disposition home or self-care (01) ==
LOC: ANHIMG 12:07
PROVIDERS: PCP Family Medicine; Visit Provider Family Medicine
DX: Z87.01 Personal history of pneumonia (recurrent) (principal); R91.8 Other nonspecific abnormal finding of lung field
CPT/HCPCS: 71046

== ENCOUNTER 2022-01-09 14:17 | Outpatient (CLI) | payer MEDICARE, SELFPAY ==
--- NOTE | 2022-01-18 15:39 | WPDSLEEPSTUD ---
Sleep Study Date of Study: 01/09/22 Ordering Provider: Filiberto Crawford MD Interpreting Physician: Sunita Lock MD Sleep Study Type: Split Polysomnogram Height: 1.63 m Weight: 65.771 kg Body Mass Index: 24.9 Neck Circumference (inches): 12 [place]: 1 Reason for Sleep Study Hypersomnia and snoring. Overnight oximetry with 235 minutes below 88% Sleep History Yas Haywood is a 71 year old female with hypersomnia and snoring. Her significant medical comorbidities include hypertension, heart disease, diabetes and depression. She has poor sleep which in part is due to her peripheral neuropathy. She has a difficult time falling asleep and she wakes up throughout the night. She does not awaken from sleep feeling short of breath but she does frequently awaken at night with heartburn, belching or coughing. She denies snoring and others do not tell her that she snores. She occasionally has trouble sleeping with a cold. She does not wake up gasping for breath at night. She constantly has breathing problems at night reported to her by others. She occasionally sweats excessively at night. She does not notice her heart pounding or beating irregularly at night. She occasionally falls asleep during the day but never falls asleep involuntarily or while driving. She does not have loss of muscle tone with strong emotion. She does not have daytime difficulties due to excessive sleepiness. She does not feel paralyzed on waking or falling asleep and she does not have vivid dreamlike scenes upon awakening or falling asleep. She does not feel afraid to go to sleep. She does not have nightmares. She occasionally remembers her dreams, occasionally has racing thoughts. She occasionally feels sad, depressed or anxious. She does not have muscular tension, does not notice parts of her body jerking and she does not kick at night. She frequently has crawling and aching feelings in her legs and frequently has leg pain at night. She does not have morning jaw pain or grind her teeth at night. She frequently has bothered by pain during the day and awakened by pain at night. She does not wake up feeling stiff in the morning, does not wake up with sore achy muscles are pain in the neck and spine. She takes antacids regularly. She reports a 30 lb weight gain in the last year. Normal bedtime is 9:00 p.m. falling asleep within 1 hour typically waking once at night for no clear reason. She usually wakes in the morning by 8:00 a.m.. On the weekends she goes to bed also at 9:00 a.m. wakes in the morning at 7:00 a.m.. She does not take naps in the afternoon or evening. She feels better in the morning compared to other times of day Habits: Former smoker. She does drink caffeine. No alcohol or recreational drugs. 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 Haywood lives at home with her . She is independent in her ADLs. She designates her as her surrogate decision maker and would like to be a DNR. She has two sons, one of whom several years ago. Smoking packs per day: 0.5 Smoking cigarettes per day: 10.0 Years smoked:
[2022-01-20 08:44] VITALS: BMI 24.9
== END 2022-01-10 06:29 | disposition home or self-care (01) ==
LOC: ANHCSM 14:17
PROVIDERS: PCP Family Medicine; Visit Provider Family Medicine
DX: R09.02 Hypoxemia (principal); G47.33 Obstructive sleep apnea (adult) (pediatric)
CPT/HCPCS: 95810; 95811

== ENCOUNTER 2022-01-16 12:29 | Outpatient (CLI) | payer MEDICARE, SELFPAY ==
--- NOTE | 2022-01-16 16:45 | WPDSIXMINUTE ---
Six Minute Walk Procedure Procedure Performed Pulmonary Stress Test (6 min walk) Six Minute Walk This is a 6 minute walk test. The test was performed and interpreted in accordance with the 2014 ERS/ATS task force guidelines. Of note the patient has neuropathy with trouble walking. She used a wheeled walker and stopped approximately 6 times for 5 seconds each time. Findings: The patient's resting room air oxygen saturation measured by pulse oximetry was 94% and heart rate was 69 bpm. Patient ambulated for 91 meters and oxygen saturation remained 92 to 94%. Heart rate at the end of the study was 88 bpm. The patient did not qualify for supplemental oxygen at rest or with ambulation. There are no prior studies for comparison.
--- NOTE | 2022-01-16 16:46 | WPDPFTINT ---
PFT Procedure Performed PFT Procedure Performed Spirometry with Pre/Post Bronchodilator Plethysmography (Lung Vol) Diffusing Cap (DLCO) Flow Vol Loop PFT Interpretation This is a pulmonary function test with pre and post-bronchodilator spirometry, plethysmography and diffusing capacity. The test was performed and results interpreted in accordance with the 2019 and 2005 ATS/ERS Task Force guidelines respectively using the Global Lung Function Initiative-2012 reference equations. Patient demonstrated good effort and cooperation. Reproducibility criteria were met. The quality of the pre bronchodilator spirometry maneuver was Grade B and post bronchodilator spirometry maneuver was Grade A. Findings: Spirometry: There is decreased maximal expiratory airflow at all lung volumes with a concave expiratory flow tracing. The contour the inspiratory flow tracing is normal. The pre bronchodilator FVC is 2.51 L, 89% predicted. The pre bronchodilator FEV1 is 1.05 L, 48% predicted. The FEV1: FVC ratio is 42%. The post bronchodilator FVC is 2.95 L, representing an 18% increase. The post bronchodilator FEV1 is 1.13 L, representing an 8% increase. The post bronchodilator FEV1: FVC ratio is 38%. Plethysmography: The total lung capacity is 5.89 L, 116% predicted. The functional residual capacity is 4.01 L, 138% predicted. The residual volume is 3.11 L, 140% predicted. Diffusing capacity: The diffusing capacity unadjusted for hemoglobin and carboxyhemoglobin is 6.5, 32% predicted. The diffusing capacity adjusted for alveolar volume is 1.76, 41% predicted. Impression: There is a severe obstructive abnormality with significant improvement after inhaling a single dose of albuterol. The increase in residual volume is consistent with air trapping from an obstructive abnormality. Hyperinflation is present is demonstrated by the increase in functional residual capacity and is consistent with an obstructive abnormality. The diffusing capacity unadjusted for hemoglobin and carboxyhemoglobin is severely decreased and remains moderately decreased when adjusted for alveolar volume. There are no prior studies for comparison
== END 2022-01-16 12:30 | disposition home or self-care (01) ==
PROVIDERS: PCP Family Medicine; Visit Provider Family Medicine
DX: R06.02 Shortness of breath (principal); R94.2 Abnormal results of pulmonary function studies
CPT/HCPCS: 94060; 94618; 94726; 94729

== ENCOUNTER 2022-07-02 11:11 | Emergency (ER) | payer MEDICARE, SELFPAY ==
--- NOTE | ~2022-07-02 | XR_ITS ---
EXAMINATION: XR chest 2V DATE: 07/02/2022 11:32 INDICATION: Hemoptysis TECHNIQUE: PA and lateral views of the chest are obtained. COMPARISON: 08/17/2021 FINDINGS: The lungs are free of acute opacities. No pleural effusion or pneumothorax. The cardiomedia stinal silhouette is normal. There is moderate thoracic spondylosis. IMPRESSION: 1. No acute cardiopulmonary abnormality. Reviewed, dictated and finalized at location A.
--- NOTE | ~2022-07-02 | CT_ITS ---
EXAMINATION: CTA chest PE protocol DATE: 07/02/2022 13:55 INDICATION: Hemoptysis. TECHNIQUE: Computed tomography angiography (CTA) of the chest was performed with 100 mL Omnipaque-350 intravenous contrast timed to evaluate the pulmonary arteries. Coronal maximum intensity projection 3D-reconstructions were created by the technologist. Automated exposure control and iterative reconst ruction technique were employed. The dose-length product was 372.57 mGy-cm. COMPARISON: Chest CT 11/04/2020 FINDINGS: There is moderate emphysema. There are airspace opacities at right lung apex with volume lo ss with interval improvement, consistent with scarring. There is mild atelectasis bilaterally. There is a stable 4 mm nodule in left lower lobe, likely benign. No pleural effusion. There is a 10 mm left thyroid nodule, likely not clinically significant. The heart size is normal. There are coronary kong ry calcifications. No pericardial effusion. The central pulmonary arteries are enlarged, consistent w ith pulmonary arterial hypertension. There is no pulmonary embolus. There are changes of cholecystect reagan. Again seen are 2 rim-calcified masses in the peritoneum measuring up to 18 mm, which may be old fat necrosis or dropped gallstones. There is severe thoracic spondylosis. IMPRESSION: 1. No pulmonary embolus. 2. Moderate emphysema with right apical scarring. Reviewed, dictated and finalized at location B.
[2022-07-02 11:14] VITALS: BP 129/63; PULSE 105; RESP 18; TEMP 36.6; O2SAT 94
[2022-07-02 11:24] VITALS: RESP 20; O2SAT 97
--- NOTE | 2022-07-02 12:25 | ED.GENADULT ---
HPI - General Adult General Chief complaint: Unspecified Stated complaint: coughing up blood Time Seen by Provider: 07/02/22 12:19 Source: patient History of Present Illness HPI narrative: 71 years old white female presents with productive cough of sputum mixed with blood noticed this morning. History of COPD with intermittent coughing. Patient on aspirin and Plavix. History of melanoma with lung metastasis, hypothyroidism, coronary stents, actively tobacco smoker. Patient denies chest pain or shortness of breath Related Data Home Medications Medication Instructions Recorded Confirmed aspirin 81 mg tablet,delayed 81 mg PO DAILY 08/18/19 06/15/22 release pregabalin 25 mg capsule (Lyrica) 25 mg PO BID 04/20/22 06/15/22 Allergies Allergy/AdvReac Type Severity Reaction Status Date / Time amoxicillin Allergy Unknown Unknown Verified 06/15/22 15:11 erythromycin base Allergy Unknown Unknown Verified 06/15/22 15:11 lisinopril Allergy Unknown cough Verified 06/15/22 15:11 nitrofurantoin Allergy Unknown Unknown Verified 06/15/22 15:11 Review of Systems Review of Systems: All systems reviewed & are unremarkable except as noted in HPI and below PMFSH Past Medical History Medical History CAD (coronary artery disease) With stents a few years ago COPD (chronic obstructive pulmonary disease) DM w/o complication type II, uncontrolled Essential (primary) hypertension H/O cyst of breast Hyperlipidemia Hypothyroidism Malignant melanoma metastatic to lung Peripheral neuropathy Surgical History Surgical History H/O cardiac catheterization H/O dilation and curettage H/O tubal ligation Hx of cholecystectomy Family History Family History Mother Diabetes mellitus Family history of coronary artery disease Father Family history of alcoholism Son Aortic aneurysm Social History Social History Social History: Ms. Haywood lives at home with her . She is independent in her ADLs. She designates her as her surrogate decision maker and would like to be a DNR. She has two sons, one of whom several years ago. Smoking packs per day: 0.5 Smoking cigarettes per day: 10.0 Years smoked: 30 Smoking pack-years: 15.00 Smoking status: Current every day smoker Tobacco type: cigarettes Alcohol intake: former Substance use: never Gender identity (if verbalized by the patient): Female Spiritual care concerns: No Exam Narrative: General appearance: Well-developed, well-nourished Skin: Normal color Head: Normocephalic, nontraumatic Eyes: Clear conjunctiva ENT: Oropharynx normal, ears normal, nose normal Neck: Supple, nontender Chest and respiratory: Airway patent, no respiratory distress, no accessory muscle use Heart: Regular rate/rhythm Abdomen: Soft, nontender, no organomegaly, quiet bowel sounds Vascular: Normal peripheral pulses, normal capillary refill. 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 Patient did not have any hemoptysis since arrival to the emergency room until the time of discharge. I plan to discharge patient home on doxycycline and prednisone for COPD exacerbation. Patient is allergic
--- NOTE | 2022-07-02 12:27 | ECG_ITS ---
Measurements Intervals [place] Rate: 69 P: 68 PA: 171 QRS: 53 QRSD: 77 T: 26 QT: 380 QTc: 409 Interpretive Statements SINUS RHYTHM POSSIBLE SEPTAL MYOCARDIAL INFARCTION , OLD [40+ ms Q WAVE IN V1/V2] COMPARED TO ECG 11/04/2020 22:41:21 NO SIGNIFICANT CHANGE Electronically Signed On 07-02-2022 14:01:48 CDT by Ronnell Orr M.D.
[2022-07-02 12:45] LABS: Alveolar/Arterial O2 Gradient 44.9 mmHg; Fractional Inspired Oxygen 21 %; HCO3 ABG 28.3 mEq/l (22.0-26.0); Oxygen Content ABG 18.1 %vol (16.0-22.0); PCO2 ABG 45.4 mmHg (35.0-45.0); PO2 ABG 50.5 mmHg (80.0-100.0); Total Hemoglobin 16.2 g/dL (12.0-18.0); pH ABG 7.412 (7.350-7.450)
[2022-07-02 12:50] VITALS: BP 138/82; PULSE 76; PULSE 79; RESP 20; O2SAT 93
[2022-07-02 12:59] LABS: Basophils Absolute Auto 0.1 K/mm3 (0.0-0.1); Basophils Percent Auto 0.7 % (0.2-1.2); Eosinophils Absolute Auto 0.1 K/mm3 (0-0.3); Eosinophils Percent Auto 1.7 % (0-4.4); Hematocrit 50.4 % (37.0-47.0); Hemoglobin 16.7 g/dL (12.0-15.0); Immature Granulocyte Absolute 0.03 K/mm3 (0.00-0.031); Immature Granulocyte Percent A 0.4 % (0-0.5); Lymphocytes Absolute Auto 2.58 K/mm3 (0.9-3.2); Lymphocytes Percent Auto 31.4 % (18.3-44.2); Mean Corpuscular HGB Conc 33.1 g/dl (32-36); Mean Corpuscular Hemoglobin 33.7 pg (26-34); Mean Corpuscular Volume 101.6 fl (80-100); Mean Platelet Volume 9.9 fl (7.4-10.4); Monocytes Absolute Auto 0.4 K/mm3 (0.1-0.6); Neutrophils Percent Auto 60.8 % (45.5-73.1); Platelet Count Result 198 k/mm3 (150-375); Red Blood Count 4.96 M/mm3 (4.2-5.4); Red Cell Distribution Width 12.7 % (11.5-14.5); White Blood Count 8.2 K/mm3 (4.5-10.0)
[2022-07-02 13:09] LABS: Alanine Aminotransferase 16 U/L (6-35); Albumin Level 4.5 g/dL (3.5-5.1); Alkaline Phosphatase 46 U/L (38-126); Anion Gap 10 mmol/L (8-16); Aspartate Amino Transferase 24 U/L (14-36); Bilirubin,Total 0.6 mg/dL (0.2-1.3); Blood Urea Nitrogen 12 mg/dL (7-17); Calcium 9.4 mg/dL (8.4-10.2); Carbon Dioxide 32 mmol/L (22-30); Chloride 99 mmol/L (98-107); Estimated CRCL calculation 39 ml/min; Estimated Glomerular Filt Rate 55; Glucose 159 mg/dL (65-110); Magnesium 1.1 mg/dL (1.6-2.3); Sodium 141 mmol/L (137-145)
[2022-07-02 13:11] LABS: INR 1.1; Prothrombin Time 13.7 Seconds (11.1-14.7)
[2022-07-02 13:12] LABS: Partial Thromboplastin Time 31.2 SECONDS (22.3-36.8)
[2022-07-02 13:17] LABS: NT Pro B Type Natriuretic Pept 345 pg/mL (5-100)
[2022-07-02 13:27] LABS: D Dimer 1.71 ug/mL (<0.48)
[2022-07-02 14:29] VITALS: BP 124/90; PULSE 73; RESP 18; O2SAT 94
[2022-07-02 15:36] VITALS: BP 135/74; PULSE 73; RESP 18; O2SAT 96
[2022-07-02 16:55] LABS: Device ROOM AIR; Modified Allen's Test Pass; Oxyhemoglobin 79.5 % THb (90.0-100.0); Site Drawn RIGHT RADIAL
--- NOTE | 2022-07-02 19:16 | PC.NURSE ---
Pt left prior to taking her prescriptions, per pt request prescriptions faxed to [facility] pharmacy.
== END 2022-07-02 15:38 | disposition home or self-care (01) ==
PROVIDERS: Emergency Provider Emergency Medicine; PCP Family Medicine
DX: J44.1 Chronic obstructive pulmonary disease with (acute) exacerbation (principal); I25.10 Atherosclerotic heart disease of native coronary artery without angina pectoris; I10 Essential (primary) hypertension; E78.5 Hyperlipidemia, unspecified; E11.42 Type 2 diabetes mellitus with diabetic polyneuropathy; E03.9 Hypothyroidism, unspecified; F17.210 Nicotine dependence, cigarettes, uncomplicated; Z95.5 Presence of coronary angioplasty implant and graft; Z85.118 Personal history of other malignant neoplasm of bronchus and lung; Z85.820 Personal history of malignant melanoma of skin; Z66 Do not resuscitate; Z79.82 Long term (current) use of aspirin; Z79.02 Long term (current) use of antithrombotics/antiplatelets; R94.31 Abnormal electrocardiogram [ECG] [EKG]
CPT/HCPCS: 36415; 36600; 71046; 71275; 80053; 82805; 83735; 83880; 85025; 85380; 85610; 85730; 87040; 93005; 99284; Q9967

== ENCOUNTER 2022-07-05 10:34 | Inpatient (IN) | payer MEDICARE, SELFPAY ==
[2022-07-05] VITALS (14 sets, daily range): BP systolic 100–143; BP diastolic 57–100; PULSE 64–92; RESP 16–22; TEMP 36.2–36.6; O2SAT 88–97; BMI 25.8
--- NOTE | ~2022-07-05 | XR_ITS ---
EXAMINATION: XR chest 2V 07/09/2022 13:02 INDICATION: Hemoptysis PROCEDURE: 2 view chest COMPARISON: Comparison to multiple prior studies sequentially, with oldest reviewed study dated 11/06. FINDINGS: There is chronic right upper lobe scarring. No acute focal pneumonia, edema, pleural effusi on or pneumothorax. The cardiomediastinal silhouette is within normal limits. There are no pleural e ffusions. There is no pneumothorax suspected. IMPRESSION: 1: NO ACUTE CARDIOPULMONARY DISEASE. Reviewed, dictated and finalized at location B.
--- NOTE | ~2022-07-05 | XR_ITS ---
EXAMINATION: XR chest 2V DATE: 07/05/2022 13:07 INDICATION: Hemoptysis. TECHNIQUE: Frontal and lateral views of the chest were obtained. COMPARISON: Chest 2 views 07/02/2022, chest CT 07/02/2022 FINDINGS: There are airspace opacities in right upper lobe with volume loss. There are lucencies in t he lungs, consistent with emphysema. There is mild atelectasis at left lung base. No pleural effusion or pneumothorax without size is normal. Surgical clips in the right upper quadrant are likely from c holecystectomy. IMPRESSION: 1. Mildly worsened right upper lobe airspace opacities, consistent with atelectasis/scarring without or with pneumonia. 2. Worsened mild atelectasis at left lung base. 3. Emphysema. Reviewed, dictated and finalized at location A. IMPRESSION: 1. Mildly worsened right upper lobe airspace opacities, consistent with atelect asis/scarring without or with pneumonia. 2. Worsened mild atelectasis at left lung base. 3. Emphysema.
[2022-07-05] MEDS: ALBUTEROL SULFATE NEB 2.5 MG/3 ML INH 5 MG INHALATION (12:24)
[2022-07-05] MEDS: IPRATROPIUM BR 0.02% INH SOLN 0.5 MG/2.5 ML VIAL INHALATION ×2 (12:25→20:31)
--- NOTE | 2022-07-05 12:33 | ED.URI ---
HPI - URI/Sore Throat General Chief Complaint: Upper Respiratory Infection Stated Complaint: coughing up blood Time Seen by Provider: 07/05/22 12:01 History of Present Illness HPI Narrative: Patient is a 71-year-old female who presents to the ER with hemoptysis. Reports she had some blood-tinged sputum on 07/02. She was started on prednisone and doxycycline for her COPD and cough. Since then she has had increased hemoptysis volume and it has become more frequent. No fevers or chills or sweats. Patient found to be hypoxic in the ER and placed on 2 L of fluid. Recently had a CTA that showed no PE or lung mass. No chest pain or chest pressure. Related Data Home Medications Medication Instructions Recorded Confirmed aspirin 81 mg tablet,delayed 81 mg PO DAILY 08/18/19 06/15/22 release pregabalin 25 mg capsule (Lyrica) 25 mg PO BID 04/20/22 06/15/22 Allergies Allergy/AdvReac Type Severity Reaction Status Date / Time amoxicillin Allergy Unknown Unknown Verified 07/05/22 11:19 erythromycin base Allergy Unknown Unknown Verified 07/05/22 11:19 lisinopril Allergy Unknown cough Verified 07/05/22 11:19 nitrofurantoin Allergy Unknown Unknown Verified 07/05/22 11:19 Review of Systems Review of Systems: All systems reviewed & are unremarkable except as noted in HPI and below Constitutional: Constitutional: Denies chills, Denies fatigue and Denies fever(s) ENT: Denies nasal congestion and Denies sore throat Cardiovascular: Cardiovascular: Denies chest pain, Denies rapid heart rate and Denies radiating jaw, neck or arm pain Respiratory: Respiratory: Denies chest congestion, Reports cough, Denies dyspnea and Reports wheezing Gastrointestinal: Gastrointestinal: Denies abdominal pain, Denies nausea and Denies vomiting Genitourinary: Genitourinary: Denies nocturia, Denies dysuria and Denies flank pain PMFSH Past Medical History Medical History CAD (coronary artery disease) With stents a few years ago COPD (chronic obstructive pulmonary disease) DM w/o complication type II, uncontrolled Essential (primary) hypertension H/O cyst of breast Hyperlipidemia Hypothyroidism Malignant melanoma metastatic to lung Peripheral neuropathy Surgical History Surgical History H/O cardiac catheterization H/O dilation and curettage H/O tubal ligation Hx of cholecystectomy Family History Family History Mother Diabetes mellitus Family history of coronary artery disease Father Family history of alcoholism Son Aortic aneurysm Social History Social History Social History: Ms. Haywood lives at home with her . She is independent in her ADLs. She designates her as her surrogate decision maker and would like to be a DNR. She has two sons, one of whom several years ago. Smoking packs per day: 0.5 Smoking cigarettes per day: 10.0 Years smoked: 30 Smoking pack-years: 15.00 Smoking status: Current every day smoker Tobacco type: cigarettes Alcohol intake: former Substance use: never Gender identity (if verbalized by the patient): Female Spiritual care concerns: No Exam Narrative: GENERAL: Well-appearing, well-nourished, and in no acute distress. HEAD: Normocephalic, atraumatic. EYES: PERRL and EOMI. ENT: Mucous membranes moist. CHEST: Faint expiratory wheezing worse on right than the left. No respiratory distress. HEART: Regular rate and rhythm. Normal peripheral pulses. ABDOMEN: Soft, nontender, nondistended. EXTREMITIES: Normal range of motion. No edema. SKIN: Warm, dry, no rash. NEURO: Alert and oriented x3. PSYCH: Normal mood and affect. Course Course Emergency Course: Discussed case with Cleo with the hospitalist service. Patient will be admitted for I
[2022-07-05 12:36] LABS: Basophils Absolute Auto 0.1 K/mm3 (0.0-0.1); Basophils Percent Auto 0.5 % (0.2-1.2); Eosinophils Absolute Auto 0.1 K/mm3 (0-0.3); Eosinophils Percent Auto 0.7 % (0-4.4); Hematocrit 43.6 % (37.0-47.0); Hemoglobin 14.7 g/dL (12.0-15.0); Immature Granulocyte Absolute 0.04 K/mm3 (0.00-0.031); Immature Granulocyte Percent A 0.4 % (0-0.5); Lymphocytes Absolute Auto 2.69 K/mm3 (0.9-3.2); Lymphocytes Percent Auto 26.9 % (18.3-44.2); Mean Corpuscular HGB Conc 33.7 g/dl (32-36); Mean Corpuscular Hemoglobin 33.8 pg (26-34); Mean Corpuscular Volume 100.2 fl (80-100); Mean Platelet Volume 9.7 fl (7.4-10.4); Monocytes Absolute Auto 0.4 K/mm3 (0.1-0.6); Monocytes Percent Auto 4.3 % (2.6-8.5); Neutrophils Absolute Auto 6.7 K/mm3 (1.3-6.7); Neutrophils Percent Auto 67.2 % (45.5-73.1); Platelet Count Result 186 k/mm3 (150-375); Red Blood Count 4.35 M/mm3 (4.2-5.4); Red Cell Distribution Width 12.4 % (11.5-14.5)
[2022-07-05 12:40] LABS: Alveolar/Arterial O2 Gradient 78.7 mmHg; Base Excess ABG -1.6 mEq/l (+/-2.0); Carboxyhemoglobin 6.7 % THb (0-2.0); Fractional Inspired Oxygen 28 %; HCO3 ABG 23.3 mEq/l (22.0-26.0); Oxygen Content ABG 18.7 %vol (16.0-22.0); Oxygen Saturation ABG 94.6 % (95.0-100.0); Oxyhemoglobin 87.9 % THb (90.0-100.0); PCO2 ABG 40.1 mmHg (35.0-45.0); PO2 ABG 73.6 mmHg (80.0-100.0); PO2 FiO2 Ratio Arterial Blood 2.63 %; Reduced Hemoglobin 5.4 %THb (0-5.0); Total Hemoglobin 15.1 g/dL (12.0-18.0); pH ABG 7.382 (7.350-7.450)
[2022-07-05 12:41] LABS: Device NASAL CANNULA; Modified Allen's Test Pass; Site Drawn RIGHT RADIAL
[2022-07-05 12:46] LABS: INR 1.1; Prothrombin Time 13.4 Seconds (11.1-14.7)
[2022-07-05 12:47] LABS: Partial Thromboplastin Time 26.1 SECONDS (22.3-36.8)
[2022-07-05 13:52] LABS: Anion Gap 8 mmol/L (8-16); Blood Urea Nitrogen 15 mg/dL (7-17); Calcium 8.6 mg/dL (8.4-10.2); Carbon Dioxide 29 mmol/L (22-30); Chloride 102 mmol/L (98-107); Estimated CRCL calculation 48 ml/min; Estimated Glomerular Filt Rate > 60; Glucose 138 mg/dL (65-110); Potassium 3.3 mmol/L (3.4-5.0); Sodium 139 mmol/L (137-145)
[2022-07-05 14:45] LABS: SARS-CoV-2 RNA PCR Negative
--- NOTE | 2022-07-05 16:33 | PM.IMHP ---
H&P: HPI History of Present Illness Date/Time: 07/05/22 16:33 Chief Complaint: Hemoptysis Narrative: this is a 71-year-old female patient who presented to the emergency room with hemoptysis. Patient stated she felt like she was hemorrhaging. The patient was recently seen in the emergency room on 07/02/2022 and she was prescribed prednisone and doxycycline for her COPD and cough. She has a history of melanoma with lung metastasis, hypothyroidism coronary artery disease with stents, and active tobacco abuse. The patient is seen by [facility] emergency care attendant outpatient randall. The patient returned because she had increased hemoptysis Valium and became more frequent. She had no fever chills. Patient was found to be hypoxic in the emergency room was placed on 2 L per nasal cannula. Patient was on room air and eating her lunch when I saw her. The patient recently had a CTA that showed no PE or lung mass. She has no chest pain or chest pressure at this time. Patient was started on Rocephin and azithromycin. She was also given a nebulizer treatment. The patient is being admitted to observation status on the date of service of 07/05/2022. Review of Systems Review of Systems: See HPI All systems reviewed & are unremarkable except as noted in HPI and below Constitutional: Constitutional: Reports as per HPI and Reports no additional constitutional complaints Eyes: Eyes: Reports as per HPI and Reports no additional eye complaints ENT: Reports system reviewed and no additional complaints, except as documented and Reports Normal hearing present Cardiovascular: Cardiovascular: Reports no additional cardiovascular complaints Respiratory: Respiratory: Reports no additional respiratory complaints and Reports no additional respiratory complaints Gastrointestinal: Gastrointestinal: Reports as per HPI and Reports no additional gastrointestinal complaints Musculoskeletal: Musculoskeletal: Reports no additional musculoskeletal complaints Integumentary/Breasts: Skin/Breast: Reports system reviewed and no additional complaints, except as docu and Reports as per HPI Neurologic: Reports system reviewed and no additional complaints, except as documented, Reports as per HPI and Reports Normal hearing present Psychiatric: Psychiatric: Reports no additional psychiatric complaints and Reports as per HPI Endocrine: Endocrine: Reports no additional endocrine complaints Hematologic/Lymphatic: Hematologic/Lymphatic: Reports no additional hematologic/lymphatic complaints Allergic/Immunologic: Allergic/Immunologic: Reports no additional allergic/immunologic complaints [facility] Past Medical History Medical History (Updated 07/05/22 @ 18:48 by Cleo A. Benhoff, PANTOGRAPH OPERATOR) CAD (coronary artery disease) With stents a few years ago CAP (community acquired pneumonia) COPD (chronic obstructive pulmonary disease) DM w/o complication type II, uncontrolled Essential (primary) hypertension H/O cyst of breast Hematuria, unspecified Hyperlipidemia Hypothyroidism Malignant melanoma metastatic to lung Treated with Keytruda Peripheral neuropathy Surgical History Surgical History H/O cardiac catheterization H/O dilation and curettage H/O tubal ligation History of bladder surgery History of carpal tunnel release History of removal of pigmented skin lesion Hx of cholecystectomy Family History Family History Mother Diabetes mellitus Family history of coronary artery disease Father Family history of alcoholism Son Aortic aneurysm Social History Social History (Updated 07/05/22 @ 18:40 by Cleo So NP) Social History: Ms. Haywood lives at home with her . She is independent in her ADLs. She designates her as her surrogate decision maker . She has two sons, one of whom several years ago. t
--- NOTE | 2022-07-05 17:05 | PC.NURSE ---
This patient, Yas Haywood, was admitted to [facility] Surg Room 324-01. Patient/family oriented to hospital policies and general routines including ID bracelet, bed and alarms, visiting hours, pain management, procedures, bathroom and other care routines, personal items, smoking policy, room service/diet, and visiting hours. Information on how to activate the Rapid Response Team has been discussed. Patient/Family are encouraged to report perceived risks to care and to ask questions if they do not understand what they are told or what they should do.
[2022-07-05] MEDS: FLUTICASONE/SALMETEROL 115-21 MCG INHALER 1 PUFF 2 PUFF INHALATION (20:31)
[2022-07-05] MEDS: ALBUTEROL SULFATE NEB 2.5 MG/3 ML INH INHALATION (20:31)
[2022-07-05] MEDS: traZODone HCL 50 MG TABLET 100 MG PO (21:34)
[2022-07-05] MEDS: CLOPIDOGREL BISULFATE 75 MG TABLET PO (21:34)
[2022-07-05] MEDS: DULoxetine HCL 60 MG CAPSULE.DR PO (21:34)
[2022-07-05] MEDS: FENOFIBRATE 160 MG TABLET PO (21:34)
[2022-07-05] MEDS: PREGABALIN (*CRX) 25 MG CAPSULE 75 MG PO (21:35)
[2022-07-05 22:12] LABS: Glucose Point of Care 117 mg/dl (65-105)
[2022-07-06] VITALS (15 sets, daily range): BP systolic 110–141; BP diastolic 61–119; PULSE 68–110; RESP 16–18; TEMP 36.2–36.7; O2SAT 90–98
[2022-07-06] MEDS: ALBUTEROL SULFATE NEB 2.5 MG/3 ML INH INHALATION ×4 (02:40→23:28)
[2022-07-06] MEDS: IPRATROPIUM BR 0.02% INH SOLN 0.5 MG/2.5 ML VIAL INHALATION ×4 (02:40→23:28)
[2022-07-06 06:19] LABS: Basophils Absolute Auto 0.1 K/mm3 (0.0-0.1); Eosinophils Absolute Auto 0.1 K/mm3 (0-0.3); Eosinophils Percent Auto 1.8 % (0-4.4); Hematocrit 42.6 % (37.0-47.0); Hemoglobin 13.9 g/dL (12.0-15.0); Immature Granulocyte Absolute 0.02 K/mm3 (0.00-0.031); Immature Granulocyte Percent A 0.3 % (0-0.5); Lymphocytes Absolute Auto 2.32 K/mm3 (0.9-3.2); Mean Corpuscular HGB Conc 32.6 g/dl (32-36); Mean Corpuscular Hemoglobin 33.4 pg (26-34); Mean Corpuscular Volume 102.4 fl (80-100); Mean Platelet Volume 9.8 fl (7.4-10.4); Monocytes Absolute Auto 0.4 K/mm3 (0.1-0.6); Neutrophils Absolute Auto 4.1 K/mm3 (1.3-6.7); Neutrophils Percent Auto 57.9 % (45.5-73.1); Platelet Count Result 171 k/mm3 (150-375); Red Blood Count 4.16 M/mm3 (4.2-5.4); Red Cell Distribution Width 12.8 % (11.5-14.5)
[2022-07-06] MEDS: LEVOTHYROXINE SODIUM 100 MCG TABLET PO (06:24)
[2022-07-06 06:28] LABS: Alanine Aminotransferase 13 U/L (6-35); Albumin Level 3.7 g/dL (3.5-5.1); Alkaline Phosphatase 37 U/L (38-126); Anion Gap 8 mmol/L (8-16); Aspartate Amino Transferase 22 U/L (14-36); Bilirubin,Total 0.5 mg/dL (0.2-1.3); Blood Urea Nitrogen 14 mg/dL (7-17); Calcium 8.5 mg/dL (8.4-10.2); Carbon Dioxide 31 mmol/L (22-30); Chloride 102 mmol/L (98-107); Estimated CRCL calculation 39 ml/min; Estimated Glomerular Filt Rate 55; Glucose 114 mg/dL (65-110); Magnesium 1.3 mg/dL (1.6-2.3); Potassium 3.7 mmol/L (3.4-5.0); Sodium 141 mmol/L (137-145)
[2022-07-06 06:29] LABS: Lactic Acid Reflex 0.9 mmol/L (0.7-2.0)
[2022-07-06 07:25] LABS: Thyroid Stimulating Hormone Reflex < 0.015 uIU/mL (0.465-4.68)
[2022-07-06 07:47] LABS: Glucose Point of Care 132 mg/dl (65-105)
[2022-07-06] MEDS: FLUTICASONE/SALMETEROL 115-21 MCG INHALER 1 PUFF 2 PUFF INHALATION ×2 (07:52→23:28)
[2022-07-06 07:53] LABS: Free T4 Free Thyroxine Reflex 1.76 ng/dL (0.78-2.19)
[2022-07-06 08:00] LABS: Hemoglobin A1C 7.3 % (<5.7)
[2022-07-06] MEDS: PREGABALIN (*CRX) 25 MG CAPSULE 75 MG PO ×2 (08:54→21:46)
[2022-07-06] MEDS: ROSUVASTATIN 10 MG TABLET PO (08:54)
[2022-07-06] MEDS: PANTOPRAZOLE 40 MG TABLET PO (08:54)
[2022-07-06] MEDS: METOPROLOL SUCCINATE EXT REL 50 MG TABCR PO (08:54)
[2022-07-06] MEDS: ASPIRIN 81 MG ENTERIC TABLET PO (08:54)
--- NOTE | 2022-07-06 09:05 | PM.IMPN ---
Progress Note: A&P Assessment and Plan (1) Acute hypoxemic respiratory failure: Code(s): J96.01 - Acute respiratory failure with hypoxia Status: Acute Assessment and Plan: Oxygen saturation 88% in emergency department. CXR and CTA chest with right upper lobe opacities. No evidence of PE on CTA. No known hx of heart failure. Imaging suggestive of pneumonia. -Continue azithromycin and ceftriaxone (2) Hemoptysis: Code(s): R04.2 - Hemoptysis Status: Acute Assessment and Plan: Hx of melanoma with metastasis to the lung. Continues to have hemoptysis. Appreciate Pulmonology recommendations. -Hold clopidogrel -Hold aspirin (3) Community acquired bacterial pneumonia: Code(s): J15.9 - Unspecified bacterial pneumonia Status: Acute Assessment and Plan: -See #1. (4) COPD (chronic obstructive pulmonary disease): Code(s): J44.9 - Chronic obstructive pulmonary disease, unspecified Status: Acute Assessment and Plan: Does not appear to be having an acute exacerbation. Stable. Takes budesonide-formeterol BID at home and albuterol as needed. Continue. (5) Depressive disorder, not elsewhere classified: Code(s): F32.9 - Major depressive disorder, single episode, unspecified Status: Acute Assessment and Plan: -Continue trazodone (6) DM w/o complication type II, uncontrolled: Code(s): E11.65 - Type 2 diabetes mellitus with hyperglycemia Status: Acute Assessment and Plan: -SSI with accuchecks (7) Essential (primary) hypertension: Code(s): I10 - Essential (primary) hypertension Status: Acute Assessment and Plan: -Continue with metoprolol (8) Hypothyroidism: Qualifiers: Hypothyroidism type: acquired Qualified Code(s): E03.9 - Hypothyroidism, unspecified Code(s): E03.9 - Hypothyroidism, unspecified Status: Acute Assessment and Plan: TSH very low and Free t4 1.76 on levothyroxine 100 mcg daily. Will reduce levothyroxine due to over suppression and risk of atrial fibrillation. No known history of thyroid cancer. 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 (10) Mixed hyperlipidemia: Code(s): E78.2 - Mixed hyperlipidemia Status: Acute Assessment and Plan: Takes rosuvastatin and fenofibrate at home. Continue. (11) Obstructive sleep apnea: Code(s): G47.33 - Obstructive sleep apnea (adult) (pediatric) Status: Acute Assessment and Plan: - titrate CPAP to home settings. (12) Chronic pain syndrome: Code(s): G89.4 - Chronic pain syndrome Status: Acute Assessment and Plan: Takes duloxetine and pregabalin at home. Continue. (13) CAD (coronary artery disease): Code(s): I25.10 - Atherosclerotic heart disease of [place] coronary artery without angina pectoris Status: Acute Assessment and Plan: Takes aspirin and clopidogrel at home. Hold both due to the persistent hemotpysis. Subjective Date/time seen: 07/06/22 09:05 Patient says she feels fine but has continued to cough up blood. Patient says she just coughed up a significant amount of blood. Patient says she wears oxygen at night with her CPAP, but otherwise she does not wear oxygen during the day. Review of Systems Respiratory: Respiratory: Reports hemoptysis, Denies dyspnea and Denies dyspnea on exertion Exam Narrative: GENERAL: NAD, cooperative HEENT: Normocephalic, atraumatic, anicteric NECK: Supple CV: Normal S1, S2, RRR, No MRG RESP: CTAB, Nor
[2022-07-06 09:20] LABS: Total Triiodothyronine (T3) 0.85 NG/ML (0.97-1.69)
[2022-07-06 11:09] LABS: Glucose Point of Care 191 mg/dl (65-105)
[2022-07-06 16:39] LABS: Glucose Point of Care 180 mg/dl (65-105)
[2022-07-06] MEDS: FENOFIBRATE 160 MG TABLET PO (17:41)
[2022-07-06] MEDS: CLOPIDOGREL BISULFATE 75 MG TABLET PO (17:41)
[2022-07-06] MEDS: DULoxetine HCL 60 MG CAPSULE.DR PO (17:41)
[2022-07-06] MEDS: traZODone HCL 50 MG TABLET 100 MG PO (21:46)
[2022-07-07] VITALS (9 sets, daily range): BP systolic 103–123; BP diastolic 70–84; PULSE 67–80; RESP 16–20; TEMP 36.1–37.2; O2SAT 93–100
[2022-07-07] MEDS: LEVOTHYROXINE SODIUM 88 MCG TABLET PO (06:15)
[2022-07-07 06:26] LABS: Basophils Absolute Auto 0.1 K/mm3 (0.0-0.1); Eosinophils Absolute Auto 0.1 K/mm3 (0-0.3); Eosinophils Percent Auto 2.1 % (0-4.4); Hematocrit 41.2 % (37.0-47.0); Hemoglobin 13.7 g/dL (12.0-15.0); Immature Granulocyte Absolute 0.02 K/mm3 (0.00-0.031); Immature Granulocyte Percent A 0.3 % (0-0.5); Lymphocytes Absolute Auto 2.16 K/mm3 (0.9-3.2); Lymphocytes Percent Auto 37.8 % (18.3-44.2); Mean Corpuscular HGB Conc 33.3 g/dl (32-36); Mean Corpuscular Hemoglobin 33.9 pg (26-34); Mean Platelet Volume 9.9 fl (7.4-10.4); Monocytes Absolute Auto 0.4 K/mm3 (0.1-0.6); Monocytes Percent Auto 6.8 % (2.6-8.5); Platelet Count Result 161 k/mm3 (150-375); Red Blood Count 4.04 M/mm3 (4.2-5.4); Red Cell Distribution Width 12.6 % (11.5-14.5); White Blood Count 5.7 K/mm3 (4.5-10.0)
[2022-07-07 06:43] LABS: Anion Gap 7 mmol/L (8-16); Blood Urea Nitrogen 17 mg/dL (7-17); Carbon Dioxide 27 mmol/L (22-30); Chloride 105 mmol/L (98-107); Estimated CRCL calculation 48 ml/min; Estimated Glomerular Filt Rate > 60; Glucose 134 mg/dL (65-110); Potassium 3.6 mmol/L (3.4-5.0); Sodium 139 mmol/L (137-145)
[2022-07-07 08:21] LABS: Glucose Point of Care 146 mg/dl (65-105)
--- NOTE | 2022-07-07 08:26 | PM.IMPN ---
Progress Note: A&P Assessment and Plan (1) Acute hypoxemic respiratory failure: Code(s): J96.01 - Acute respiratory failure with hypoxia Status: Acute Assessment and Plan: Oxygen saturation 88% in emergency department. CXR and CTA chest with right upper lobe opacities. No evidence of PE on CTA. No known hx of heart failure. Imaging suggestive of pneumonia. Improved able to speak and sit without oxygen. -Continue azithromycin and ceftriaxone (2) Hemoptysis: Code(s): R04.2 - Hemoptysis Status: Acute Assessment and Plan: Hx of melanoma with metastasis to the lung. Continues to have hemoptysis. Hemoglobin stable. -Appreciate Pulmonology recommendations. -Hold clopidogrel -Hold aspirin (3) Community acquired bacterial pneumonia: Code(s): J15.9 - Unspecified bacterial pneumonia Status: Acute Assessment and Plan: -See #1. (4) COPD (chronic obstructive pulmonary disease): Code(s): J44.9 - Chronic obstructive pulmonary disease, unspecified Status: Acute Assessment and Plan: Does not appear to be having an acute exacerbation. Stable. Takes budesonide-formeterol BID at home and albuterol as needed. Continue. (5) Depressive disorder, not elsewhere classified: Code(s): F32.9 - Major depressive disorder, single episode, unspecified Status: Acute Assessment and Plan: -Continue trazodone (6) DM w/o complication type II, uncontrolled: Code(s): E11.65 - Type 2 diabetes mellitus with hyperglycemia Status: Acute Assessment and Plan: -SSI with accuchecks (7) Essential (primary) hypertension: Code(s): I10 - Essential (primary) hypertension Status: Acute Assessment and Plan: -Continue with metoprolol (8) Hypothyroidism: Qualifiers: Hypothyroidism type: acquired Qualified Code(s): E03.9 - Hypothyroidism, unspecified Code(s): E03.9 - Hypothyroidism, unspecified Status: Acute Assessment and Plan: TSH very low and Free t4 1.76 on levothyroxine 100 mcg daily. Will reduce levothyroxine due to over suppression and risk of atrial fibrillation. No known history of thyroid cancer. 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 (10) Mixed hyperlipidemia: Code(s): E78.2 - Mixed hyperlipidemia Status: Acute Assessment and Plan: Takes rosuvastatin and fenofibrate at home. Continue. (11) Obstructive sleep apnea: Code(s): G47.33 - Obstructive sleep apnea (adult) (pediatric) Status: Acute Assessment and Plan: - titrate CPAP to home settings. (12) Chronic pain syndrome: Code(s): G89.4 - Chronic pain syndrome Status: Acute Assessment and Plan: Takes duloxetine and pregabalin at home. Continue. (13) CAD (coronary artery disease): Code(s): I25.10 - Atherosclerotic heart disease of [place] coronary artery without angina pectoris Status: Acute Assessment and Plan: Takes aspirin and clopidogrel at home. Hold both due to the persistent hemotpysis. Subjective Date/time seen: 07/07/22 08:26 Patient has many concerns about many of her doctors who are retiring and is anxious about having new doctors. Says she continues to cough up blood. Says she has less shortness of breath with exertion than prior to admission. Denies any history of thyroid cancer and has questions about thyroid medication causing jitteriness and tremors. Review of Systems Respiratory: Respiratory: Reports cough, Reports hemoptysis, Reports dyspne
[2022-07-07] MEDS: MAGNESIUM SULF 2 GM/WATER 50ML 2 GM/50 ML BAG IVPB (09:42)
[2022-07-07] MEDS: PREGABALIN (*CRX) 25 MG CAPSULE 75 MG PO ×2 (09:45→21:11)
[2022-07-07] MEDS: PANTOPRAZOLE 40 MG TABLET PO (09:46)
[2022-07-07] MEDS: METOPROLOL SUCCINATE EXT REL 50 MG TABCR PO (09:46)
[2022-07-07] MEDS: ROSUVASTATIN 10 MG TABLET PO (09:46)
[2022-07-07 11:50] LABS: Glucose Point of Care 113 mg/dl (65-105)
[2022-07-07] MEDS: FENOFIBRATE 160 MG TABLET PO (16:42)
[2022-07-07] MEDS: DULoxetine HCL 60 MG CAPSULE.DR PO (16:42)
[2022-07-07 16:51] LABS: Glucose Point of Care 121 mg/dl (65-105)
[2022-07-07] MEDS: traZODone HCL 50 MG TABLET 100 MG PO (21:10)
[2022-07-07] MEDS: FLUTICASONE/SALMETEROL 115-21 MCG INHALER 1 PUFF 2 PUFF INHALATION (21:14)
[2022-07-07] MEDS: ALBUTEROL SULFATE NEB 2.5 MG/3 ML INH INHALATION (21:14)
[2022-07-07] MEDS: IPRATROPIUM BR 0.02% INH SOLN 0.5 MG/2.5 ML VIAL INHALATION (21:15)
[2022-07-08] VITALS (18 sets, daily range): BP systolic 99–109; BP diastolic 60–66; PULSE 62–95; RESP 16–20; TEMP 36.3–36.7; O2SAT 93–99
[2022-07-08] MEDS: IPRATROPIUM BR 0.02% INH SOLN 0.5 MG/2.5 ML VIAL INHALATION ×4 (02:32→20:17)
[2022-07-08] MEDS: ALBUTEROL SULFATE NEB 2.5 MG/3 ML INH INHALATION ×4 (02:32→20:17)
[2022-07-08 06:41] LABS: Basophils Absolute Auto 0.1 K/mm3 (0.0-0.1); Basophils Percent Auto 1.2 % (0.2-1.2); Eosinophils Absolute Auto 0.1 K/mm3 (0-0.3); Eosinophils Percent Auto 2.1 % (0-4.4); Hematocrit 39.8 % (37.0-47.0); Hemoglobin 13.2 g/dL (12.0-15.0); Immature Granulocyte Absolute 0.02 K/mm3 (0.00-0.031); Immature Granulocyte Percent A 0.4 % (0-0.5); Lymphocytes Absolute Auto 2.34 K/mm3 (0.9-3.2); Mean Corpuscular HGB Conc 33.2 g/dl (32-36); Mean Corpuscular Hemoglobin 33.8 pg (26-34); Mean Corpuscular Volume 102.1 fl (80-100); Mean Platelet Volume 10.1 fl (7.4-10.4); Monocytes Absolute Auto 0.3 K/mm3 (0.1-0.6); Neutrophils Absolute Auto 2.8 K/mm3 (1.3-6.7); Neutrophils Percent Auto 49.3 % (45.5-73.1); Platelet Count Result 165 k/mm3 (150-375); Red Cell Distribution Width 12.6 % (11.5-14.5); White Blood Count 5.7 K/mm3 (4.5-10.0)
[2022-07-08 06:53] LABS: Anion Gap 8 mmol/L (8-16); Blood Urea Nitrogen 18 mg/dL (7-17); Calcium 7.9 mg/dL (8.4-10.2); Carbon Dioxide 27 mmol/L (22-30); Chloride 105 mmol/L (98-107); Estimated CRCL calculation 48 ml/min; Estimated Glomerular Filt Rate > 60; Glucose 157 mg/dL (65-110); Potassium 3.2 mmol/L (3.4-5.0); Sodium 140 mmol/L (137-145)
[2022-07-08] MEDS: LEVOTHYROXINE SODIUM 88 MCG TABLET PO (07:07)
--- NOTE | 2022-07-08 07:52 | PM.IMPN ---
Progress Note: A&P Assessment and Plan (1) Acute hypoxemic respiratory failure: Code(s): J96.01 - Acute respiratory failure with hypoxia Status: Acute Assessment and Plan: Oxygen saturation 88% in emergency department. CXR and CTA chest with right upper lobe opacities. No evidence of PE on CTA. No known hx of heart failure. Imaging suggestive of pneumonia. Improved. -Continue azithromycin and ceftriaxone (2) Hemoptysis: Code(s): R04.2 - Hemoptysis Status: Acute Assessment and Plan: Hx of melanoma with metastasis to the lung. Continues to have hemoptysis. Hemoglobin stable. -Appreciate Pulmonology recommendations. -Hold clopidogrel -Hold aspirin (3) Community acquired bacterial pneumonia: Code(s): J15.9 - Unspecified bacterial pneumonia Status: Acute Assessment and Plan: -See #1. (4) COPD (chronic obstructive pulmonary disease): Code(s): J44.9 - Chronic obstructive pulmonary disease, unspecified Status: Acute Assessment and Plan: Does not appear to be having an acute exacerbation. Stable. Takes budesonide-formeterol BID at home and albuterol as needed. Continue. (5) Depressive disorder, not elsewhere classified: Code(s): F32.9 - Major depressive disorder, single episode, unspecified Status: Acute Assessment and Plan: -Continue trazodone (6) DM w/o complication type II, uncontrolled: Code(s): E11.65 - Type 2 diabetes mellitus with hyperglycemia Status: Acute Assessment and Plan: -SSI with accuchecks (7) Essential (primary) hypertension: Code(s): I10 - Essential (primary) hypertension Status: Acute Assessment and Plan: -Continue with metoprolol (8) Hypothyroidism: Qualifiers: Hypothyroidism type: acquired Qualified Code(s): E03.9 - Hypothyroidism, unspecified Code(s): E03.9 - Hypothyroidism, unspecified Status: Acute Assessment and Plan: TSH very low and Free t4 1.76 on levothyroxine 100 mcg daily. Will reduce levothyroxine due to over suppression and risk of atrial fibrillation. No known history of thyroid cancer. 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 (10) Mixed hyperlipidemia: Code(s): E78.2 - Mixed hyperlipidemia Status: Acute Assessment and Plan: Takes rosuvastatin and fenofibrate at home. Continue. (11) Obstructive sleep apnea: Code(s): G47.33 - Obstructive sleep apnea (adult) (pediatric) Status: Acute Assessment and Plan: - titrate CPAP to home settings. (12) Chronic pain syndrome: Code(s): G89.4 - Chronic pain syndrome Status: Acute Assessment and Plan: Takes duloxetine and pregabalin at home. Continue. (13) CAD (coronary artery disease): Code(s): I25.10 - Atherosclerotic heart disease of [place] coronary artery without angina pectoris Status: Acute Assessment and Plan: Takes aspirin and clopidogrel at home. Hold both due to the persistent hemotpysis. Subjective Date/time seen: 07/08/22 07:52 Patient reports she has continued to have blood and says now it will just spontaneously bleed. She says she feels better and feels like her breathing is better. Says she does not wear oxygen during the day at home. Review of Systems Respiratory: Respiratory: Reports hemoptysis and Reports dyspnea Exam Narrative: GENERAL: NAD, cooperative HEENT: Normocephalic, atraumatic, anicteric NECK: Supple CV: Normal S1, S2, RRR, No MRG RESP: CTAB, Normal work of jane
[2022-07-08 07:53] LABS: Glucose Point of Care 151 mg/dl (65-105)
--- NOTE | 2022-07-08 08:19 | PM.CNPUL ---
Assessment and Plan Assessment and plan (1) Acute hypoxemic respiratory failure: Code(s): J96.01 - Acute respiratory failure with hypoxia Status: Acute Assessment and Plan: She has acute hypoxemic respiratory failure, now on oxygen since admission. She has what sounds like a COPD exacerbation with pneumonia. She is having hemoptysis. This usually resolves on its own. It is more than scant hemoptysis but it is not significant enough that doing a bronchoscopy may help isolate the location. On her chest CT she has distal areas that will not be a minimal to doing a bronchoscopy. Best option would be outpatient PET scan. My concern is that she has metastatic melanoma with lesions in her chest. She had pulmonary nodules but these were dista. If there is not a significant amount of active bleeding, bronchoscopy is often not helpful. We will make her NPO tonight, consider doing bronchoscopy tomorrow depending on her status, amount of hemoptysis. She does not have enough hemoptysis to do a tagged red cell scan. 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: Code(s): C43.9 - Malignant melanoma of skin, unspecified; C78.00 - Secondary malignant neoplasm of unspecified lung Status: Acute Assessment and Plan: Initially diagnosed 2001, metastatic to the lungs around 2015, (5) Obstructive sleep apnea: Code(s): G47.33 - Obstructive sleep apnea (adult) (pediatric) Status: Acute Assessment and Plan: on CPAP and 1 L/min at night with CPAP History of Present Illness History of Present Illness Consult date: 07/08/22 Requesting physician: Indy Rosas MD Chief complaint: pneumonia,hypoxia,hemoptysis Narrative: patient was seen at 8:30 am NEW : Yas Haywood is a 71 year old female known to our service, followed in the Pulmonary Clinic. She has metastatic melanoma with involvement of her lungs. She has COPD and sleep apnea on CPAP and 1 L of oxygen at night. Jun 30Saturday she developed increasing cough, sputum production shortness of breath. She was not able to smoke her usual half pack per day. Her symptoms continued. On July 02 she presented to the emergency department, had a CTA. She was treated with doxycycline and prednisone, sent home. She continued to have symptoms including cough shortness of breath sputum production mixed with blood. She continues to have episodes of coughing today with scant sputum, blood mixed with each episode. However she does not have any anemia associated with her hemoptysis. Dr. 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 PFT 01/16/22 - showed severe obstructive abnormality with moderately decreased diffusion capacity. She smoked up until about a week ago. She has been smoking about half pack per day. She has had hemoptysis in Oct 2020 and was admitted here, treated for bacterial pneumonia 26 days of antibiotics. PMH:1) metastatic melanoma 2001; Oncologist is Simeon Albright. 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 Recurred, ipilimumab 4 cycl
[2022-07-08] MEDS: FLUTICASONE/SALMETEROL 115-21 MCG INHALER 1 PUFF 2 PUFF INHALATION ×2 (08:28→20:17)
[2022-07-08] MEDS: fentaNYL (*CRX) 25 MCG PATCH TRANSDERM (10:00)
[2022-07-08] MEDS: METOPROLOL SUCCINATE EXT REL 50 MG TABCR PO (10:01)
[2022-07-08] MEDS: PANTOPRAZOLE 40 MG TABLET PO (10:01)
[2022-07-08] MEDS: ROSUVASTATIN 10 MG TABLET PO (10:01)
[2022-07-08] MEDS: PREGABALIN (*CRX) 25 MG CAPSULE 75 MG PO ×2 (10:02→20:49)
[2022-07-08] MEDS: POTASSIUM CHLORIDE 20 MEQ TABLET.ER 40 MEQ PO ×2 (10:10→18:26)
[2022-07-08 11:25] LABS: Glucose Point of Care 187 mg/dl (65-105)
[2022-07-08 16:34] LABS: Glucose Point of Care 171 mg/dl (65-105)
[2022-07-08] MEDS: DULoxetine HCL 60 MG CAPSULE.DR PO (18:26)
[2022-07-08] MEDS: FENOFIBRATE 160 MG TABLET PO (18:26)
--- NOTE | 2022-07-08 20:24 | PCRCNOTE ---
pt in active hemoptysis when RT was in room. witnessed pt cough up enough blood to fill a tissue. RN informed.
[2022-07-08] MEDS: traZODone HCL 50 MG TABLET 100 MG PO (20:49)
[2022-07-08 21:51] LABS: Glucose Point of Care 181 mg/dl (65-105)
--- NOTE | 2022-07-08 22:34 | PC.NURSE ---
Pt was seen by respiratory for night time treatments. RT reported that pt was having hemoptysis and that it was more than patients baseline. Charge nurse notified and she stated that she was going to notify provider. Pt is to be NPO at midnight for bronchoscopy tomorrow. Pt aware of procedure and states that she does not want notified until after it is over due to him having to prep for testing tomorrow. Pt does not want to miss appointment. Pt states that she has no need or complaints at this time. Pt participated and contributed to plan of care for the shift. Will continue to monitor pt.
--- NOTE | 2022-07-08 23:38 | PCRCNOTE ---
pt changed to nasal mask from full face mask on CPAP due to active hemoptysis and risk of aspiration. pt resting comfortably with stable VS on autoset with nasal mask.
[2022-07-09] VITALS (12 sets, daily range): BP systolic 104–124; BP diastolic 59–75; PULSE 62–78; RESP 16–26; TEMP 36.2–36.6; O2SAT 90–98
[2022-07-09] MEDS: ALBUTEROL SULFATE NEB 2.5 MG/3 ML INH INHALATION ×3 (01:57→15:21)
[2022-07-09] MEDS: IPRATROPIUM BR 0.02% INH SOLN 0.5 MG/2.5 ML VIAL INHALATION ×3 (01:58→15:21)
[2022-07-09] MEDS: METOPROLOL SUCCINATE EXT REL 50 MG TABCR PO (08:20)
[2022-07-09] MEDS: POTASSIUM CHLORIDE 20 MEQ TABLET.ER 40 MEQ PO (08:20)
[2022-07-09] MEDS: ROSUVASTATIN 10 MG TABLET PO (08:21)
[2022-07-09] MEDS: PANTOPRAZOLE 40 MG TABLET PO (08:21)
[2022-07-09] MEDS: PREGABALIN (*CRX) 25 MG CAPSULE 75 MG PO ×2 (08:21→21:21)
--- NOTE | 2022-07-09 08:35 | PM.IMPN ---
Progress Note: A&P Assessment and Plan (1) Acute hypoxemic respiratory failure: Code(s): J96.01 - Acute respiratory failure with hypoxia Status: Acute Assessment and Plan: Oxygen saturation 88% in emergency department. CXR and CTA chest with right upper lobe opacities. No evidence of PE on CTA. No known hx of heart failure. Imaging suggestive of pneumonia. Improved. -Continue azithromycin and ceftriaxone (2) Hemoptysis: Code(s): R04.2 - Hemoptysis Status: Acute Assessment and Plan: Hx of melanoma with metastasis to the lung. Continues to have hemoptysis. Hemoglobin stable. Planned for possible bronchoscopy if significant hemoptysis based on assessment by [employer] [facility] today. -Appreciate Pulmonology recommendations -Hold clopidogrel -Hold aspirin (3) Community acquired bacterial pneumonia: Code(s): J15.9 - Unspecified bacterial pneumonia Status: Acute Assessment and Plan: -See #1. (4) COPD (chronic obstructive pulmonary disease): Code(s): J44.9 - Chronic obstructive pulmonary disease, unspecified Status: Acute Assessment and Plan: Does not appear to be having an acute exacerbation. Stable. Takes budesonide-formeterol BID at home and albuterol as needed. Continue. (5) Depressive disorder, not elsewhere classified: Code(s): F32.9 - Major depressive disorder, single episode, unspecified Status: Acute Assessment and Plan: -Continue trazodone (6) DM w/o complication type II, uncontrolled: Code(s): E11.65 - Type 2 diabetes mellitus with hyperglycemia Status: Acute Assessment and Plan: -SSI with accuchecks (7) Essential (primary) hypertension: Code(s): I10 - Essential (primary) hypertension Status: Acute Assessment and Plan: -Continue with metoprolol (8) Hypothyroidism: Qualifiers: Hypothyroidism type: acquired Qualified Code(s): E03.9 - Hypothyroidism, unspecified Code(s): E03.9 - Hypothyroidism, unspecified Status: Acute Assessment and Plan: TSH very low and Free t4 1.76 on levothyroxine 100 mcg daily. Will reduce levothyroxine due to over suppression and risk of atrial fibrillation. No known history of thyroid cancer. 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 (10) Mixed hyperlipidemia: Code(s): E78.2 - Mixed hyperlipidemia Status: Acute Assessment and Plan: Takes rosuvastatin and fenofibrate at home. Continue. (11) Obstructive sleep apnea: Code(s): G47.33 - Obstructive sleep apnea (adult) (pediatric) Status: Acute Assessment and Plan: - titrate CPAP to home settings. (12) Chronic pain syndrome: Code(s): G89.4 - Chronic pain syndrome Status: Acute Assessment and Plan: Takes duloxetine and pregabalin at home. Continue. (13) CAD (coronary artery disease): Code(s): I25.10 - Atherosclerotic heart disease of [place] coronary artery without angina pectoris Status: Acute Assessment and Plan: Takes aspirin and clopidogrel at home. Hold both due to the persistent hemotpysis. Subjective Date/time seen: 07/09/22 08:35 Patient says she feels better. She has had some hemoptysis but not as much. Nursing reports overnight patient had hemoptysis. Still wearing oxygen. Review of Systems Respiratory: Respiratory: Reports hemoptysis Exam Narrative: GENERAL: NAD, cooperative HEENT: Normocephalic, atraumatic, anicteric NECK: Supple CV: Normal S1, S2, RRR, No MRG RESP: CTAB, Normal
[2022-07-09] MEDS: FLUTICASONE/SALMETEROL 115-21 MCG INHALER 1 PUFF 2 PUFF INHALATION (08:37)
[2022-07-09 08:49] LABS: Basophils Absolute Auto 0.1 K/mm3 (0.0-0.1); Eosinophils Absolute Auto 0.2 K/mm3 (0-0.3); Eosinophils Percent Auto 2.6 % (0-4.4); Hematocrit 43.7 % (37.0-47.0); Hemoglobin 14.4 g/dL (12.0-15.0); Immature Granulocyte Absolute 0.02 K/mm3 (0.00-0.031); Immature Granulocyte Percent A 0.3 % (0-0.5); Lymphocytes Absolute Auto 2.33 K/mm3 (0.9-3.2); Lymphocytes Percent Auto 33.5 % (18.3-44.2); Mean Corpuscular Hemoglobin 33.9 pg (26-34); Mean Corpuscular Volume 102.8 fl (80-100); Mean Platelet Volume 9.8 fl (7.4-10.4); Monocytes Absolute Auto 0.4 K/mm3 (0.1-0.6); Monocytes Percent Auto 5.9 % (2.6-8.5); Neutrophils Absolute Auto 3.9 K/mm3 (1.3-6.7); Neutrophils Percent Auto 56.7 % (45.5-73.1); Platelet Count Result 191 k/mm3 (150-375); Red Blood Count 4.25 M/mm3 (4.2-5.4); Red Cell Distribution Width 12.5 % (11.5-14.5)
[2022-07-09 09:04] LABS: Anion Gap 8 mmol/L (8-16); Blood Urea Nitrogen 15 mg/dL (7-17); Calcium 8.8 mg/dL (8.4-10.2); Carbon Dioxide 30 mmol/L (22-30); Chloride 103 mmol/L (98-107); Estimated CRCL calculation 43 ml/min; Estimated Glomerular Filt Rate > 60; Glucose 150 mg/dL (65-110); Potassium 4.7 mmol/L (3.4-5.0); Sodium 141 mmol/L (137-145)
[2022-07-09 11:30] LABS: Glucose Point of Care 135 mg/dl (65-105)
--- NOTE | 2022-07-09 15:38 | PM.PNPUL ---
Progress Note: A&P Assessment and Plan (1) Hemoptysis: Code(s): R04.2 - Hemoptysis Status: Acute Assessment and Plan: Patient with hemoptysis shortness of breath and wheezing presented to the emergency room on 07/02 treated with prednisone and antibiotics with no help. CT no pulmonary embolism, moderate apical predominant emphysema and improved right apex infiltrate compared to 11/04/2020. Patient admitted to the hospital on 07/05/2022 with continued shortness of breath wheezing and hemoptysis. Patient currently being treated With antibiotics, bronchodilators. 07/09 Patient with continued hemoptysis although she feels that has improved. The nurse tells me she had a bloody expectoration this morning and this afternoon the patient states that it is clear phlegm with blood streaks. Patient has no wheezing. The patient states that she has less shortness of breath and feels better. She was on 1 L nasal cannula saturations 92-94%. I placed her on room air for 10 minutes and her saturations were 92%. Her white blood cell count is 7.0 her chest x-ray today shows no active disease. Her last dose of aspirin and Plavix were 07/06 at 5:00 p.m.. I will repeat coags in the morning to ensure they are normal. Will continue azithromycin to complete 5 days today, continue ceftriaxone. She has a negative chest x-ray and no evidence of pneumonia but I will treat her for tracheobronchitis aggressively with azithromycin and ceftriaxone. Do not feel she is having an active COPD exacerbation. No wheezes and will continue albuterol 2.5 mg nebs q.6 hours and ipratropium 0.5 mg nebs Q 6 hours. I will discontinue Advair as she is already on standing albuterol nebs q.6 hours and see if she can be maintained without inhaled corticosteroids. I have placed her on room air and her saturations are 92% will follow. Will follow with you. Subjective Date/time seen: 07/09/22 15:38 Interval history: Consult date: 07/08/22 Requesting physician: Indy Rosas MD Chief complaint: pneumonia,hypoxia,hemoptysis NEW?: Yas Haywood is a 71 year old female known to our service, followed in the Pulmonary Clinic. She has metastatic melanoma with involvement of her lungs.? She has COPD and sleep apnea on CPAP and 1 L of oxygen at night. ? Jun 30Saturday she developed increasing cough, sputum production shortness of breath.? She was not able to smoke her usual half pack per day.? Her symptoms continued.? On July 02 she presented to the emergency department, had a CTA.? She was treated with doxycycline and prednisone, sent home.? She continued to have symptoms including cough shortness of breath sputum production mixed with blood.? She continues to have episodes of coughing today with scant sputum, blood mixed with each episode.? However she does not have any anemia associated with her hemoptysis.? Dr. 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 PFT 01/16/22 - showed severe obstructive abnormality with moderately decreased diffusion capacity.? She smoked up until about a week ago.? She has been smoking about half pack per day. She has had hemoptysis in Oct 2020 and was admitted here, treated for bacterial pneumonia 26 days of antibiotics. 07/09 Patient with continued hemoptysis although she feels that has improved. The nurse tells me she had a bloody expectoration this morning and this afternoon the patient states that it is clear phlegm with blood streaks. Patient has no wheezing. The patient states that she has less shortness of breath and feels better. She was on 1 L nasal cannula saturations 92-94%. I placed her on room air for 10 minutes and her saturations were 92%. Her white blood cell count is 7.0 her chest x-ray today shows no active disease. Her last dose of aspirin and Plavix were 1021 at 5:00 p.m.. PMH:1)? metastat
[2022-07-09 15:50] LABS: Influenza A QL RT-PCR Negative (Negative); Influenza B QL RT-PCR Negative (Negative); SARS-CoV-2 RNA PCR Negative
[2022-07-09 16:18] LABS: Glucose Point of Care 115 mg/dl (65-105)
[2022-07-09] MEDS: FENOFIBRATE 160 MG TABLET PO (16:36)
[2022-07-09] MEDS: DULoxetine HCL 60 MG CAPSULE.DR PO (16:36)
[2022-07-09] MEDS: AZITHROMYCIN 250 MG TABLET PO (17:54)
[2022-07-09] MEDS: traZODone HCL 50 MG TABLET 100 MG PO (21:21)
--- NOTE | 2022-07-09 23:10 | PCRCNOTE ---
Window of time for administration has passed. See next scheduled administration.
[2022-07-10] VITALS (9 sets, daily range): BP systolic 96–109; BP diastolic 68–97; PULSE 62–94; RESP 18–20; TEMP 36.2–36.6; O2SAT 92–95
[2022-07-10] MEDS: ALBUTEROL SULFATE NEB 2.5 MG/3 ML INH INHALATION ×3 (02:30→13:43)
[2022-07-10] MEDS: IPRATROPIUM BR 0.02% INH SOLN 0.5 MG/2.5 ML VIAL INHALATION ×3 (02:30→13:43)
[2022-07-10] MEDS: LEVOTHYROXINE SODIUM 88 MCG TABLET PO (05:35)
[2022-07-10 06:46] LABS: Basophils Absolute Auto 0.1 K/mm3 (0.0-0.1); Eosinophils Absolute Auto 0.2 K/mm3 (0-0.3); Eosinophils Percent Auto 2.9 % (0-4.4); Hematocrit 41.7 % (37.0-47.0); Hemoglobin 14.3 g/dL (12.0-15.0); Immature Granulocyte Absolute 0.02 K/mm3 (0.00-0.031); Immature Granulocyte Percent A 0.3 % (0-0.5); Lymphocytes Percent Auto 34.5 % (18.3-44.2); Mean Corpuscular HGB Conc 34.3 g/dl (32-36); Mean Corpuscular Hemoglobin 33.7 pg (26-34); Mean Corpuscular Volume 98.3 fl (80-100); Mean Platelet Volume 9.6 fl (7.4-10.4); Monocytes Absolute Auto 0.4 K/mm3 (0.1-0.6); Monocytes Percent Auto 5.6 % (2.6-8.5); Neutrophils Absolute Auto 3.9 K/mm3 (1.3-6.7); Neutrophils Percent Auto 55.7 % (45.5-73.1); Platelet Count Result 184 k/mm3 (150-375); Red Blood Count 4.24 M/mm3 (4.2-5.4); Red Cell Distribution Width 12.4 % (11.5-14.5)
[2022-07-10 06:55] LABS: Anion Gap 11 mmol/L (8-16); Blood Urea Nitrogen 16 mg/dL (7-17); Calcium 8.8 mg/dL (8.4-10.2); Carbon Dioxide 29 mmol/L (22-30); Chloride 99 mmol/L (98-107); Estimated CRCL calculation 48 ml/min; Estimated Glomerular Filt Rate > 60; Glucose 165 mg/dL (65-110); Potassium 4.3 mmol/L (3.4-5.0); Sodium 139 mmol/L (137-145)
[2022-07-10 07:00] LABS: INR 1.1; Prothrombin Time 13.3 Seconds (11.1-14.7)
[2022-07-10 07:01] LABS: Partial Thromboplastin Time 31.3 SECONDS (22.3-36.8)
[2022-07-10 07:18] LABS: Glucose Point of Care 154 mg/dl (65-105)
[2022-07-10] MEDS: PANTOPRAZOLE 40 MG TABLET PO (07:59)
[2022-07-10] MEDS: METOPROLOL SUCCINATE EXT REL 50 MG TABCR PO (07:59)
[2022-07-10] MEDS: PREGABALIN (*CRX) 25 MG CAPSULE 75 MG PO (07:59)
[2022-07-10] MEDS: ROSUVASTATIN 10 MG TABLET PO (07:59)
[2022-07-10 11:30] LABS: Glucose Point of Care 144 mg/dl (65-105)
--- NOTE | 2022-07-10 13:36 | PM.PNPUL ---
Progress Note: A&P Assessment and Plan (1) Hemoptysis: Code(s): R04.2 - Hemoptysis Status: Acute Assessment and Plan: This is still present however much better. She came to the hospital with shortness of breath, wheezing, and hemoptysis on 07/02, treated with prednisone and antibiotics with no help. CT = no pulmonary embolism, moderate apical predominant emphysema and improved right apex infiltrate compared to 11/04/2020. She returned to the hospital on 07/05/2022 with continued shortness of breath wheezing and hemoptysis. Patient currently being treated with antibiotics, bronchodilators. 07/09 Patient with continued hemoptysis although she feels that has improved. The nurse tells me she had a bloody expectoration this morning and this afternoon the patient states that it is clear phlegm with blood streaks. Patient has no wheezing. The patient states that she has less shortness of breath and feels better. She was on 1 L nasal cannula saturations 92-94%. I placed her on room air for 10 minutes and her saturations were 92%. Her white blood cell count is 7.0 her chest x-ray today shows no active disease. Her last dose of aspirin and Plavix were 07/06 at 5:00 p.m.. I will repeat coags in the morning to ensure they are normal. She has a negative chest x-ray. No evidence of pneumonia. She is not having an active COPD exacerbation. No wheezes and will continue albuterol 2.5 mg nebs q.6 hours and ipratropium 0.5 mg nebs Q 6 hours. I will discontinue Advair as she is already on standing albuterol nebs q.6 hours and see if she can be maintained without inhaled corticosteroids. 07/10 : She has less hemoptysis. O2 weaned. She is ready to go home, will continue O2 with CPAP, and already has a pulmonary office appt soon.She can return to her usual home inhaler Symbicort 160/4.5 and p.r.n. albuterol. (2) COPD (chronic obstructive pulmonary disease): Code(s): J44.9 - Chronic obstructive pulmonary disease, unspecified Status: Acute Assessment and Plan: This is a stable problem, at home she uses albuterol rescue and Symbicort 160/4.52 puffs twice a day. She can continue to use this at home (3) Obstructive sleep apnea: Code(s): G47.33 - Obstructive sleep apnea (adult) (pediatric) Status: Acute Assessment and Plan: Uses CPAP and oxygen with at night. Continued using this at home. Plan OK for discharge. Subjective Date/time seen: 07/10/22 13:36 Interval history: Hospital follow up : Yas Haywood is a 71 year old female known to our service, followed in the Pulmonary Clinic. She has metastatic melanoma with involvement of her lungs.? She has COPD and sleep apnea on CPAP and 1 L of oxygen at night. ? Jun 30Saturday she developed increasing cough, sputum production shortness of breath.? She was not able to smoke her usual half pack per day.? Her symptoms continued.? On July 02 she presented to the emergency department, had a CTA.? She was treated with doxycycline and prednisone, sent home.? She continued to have symptoms including cough shortness of breath sputum production mixed with blood.? She continues to have episodes of coughing today with scant sputum, blood mixed with each episode.? However she does not have any anemia associated with her hemoptysis.? Dr. 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 PFT 01/16/22 - showed severe obstructive abnormality with moderately decreased diffusion capacity.? She smoked up until about a week ago.? She has been smoking about half pack per day. She has had hemoptysis in Oct 2020 and was admitted here, treated for bacterial pneumonia 26 days of antibiotics. 07/09 Luis Alfredo
--- NOTE | 2022-07-10 15:30 | PM.DS ---
DS: Admitting Diagnosis Discharge Date 07/10/22 Admitting Diagnosis Hemoptysis DS: Discharge Diagnosis Discharge Diagnosis (1) Acute hypoxemic respiratory failure: Code(s): J96.01 - Acute respiratory failure with hypoxia Status: Acute Assessment and Plan: Oxygen saturation 88% in emergency department. CXR and CTA chest with right upper lobe opacities. No evidence of PE on CTA. No known hx of heart failure. Imaging suggestive of pneumonia. Now with adequate oxygen saturation on room air. -Azithromycin completed 07/09/22 -Discharge to home with cefuroxime 500 mg BID x 2 days (2) Hemoptysis: Code(s): R04.2 - Hemoptysis Status: Acute Assessment and Plan: Hx of melanoma with metastasis to the lung. Continues to have hemoptysis. Hemoglobin stable. This has lessened with treatment of pneumonia. Pulmonology recommends resume ASA and clopidogrel and follow up in Pulmonology clinic. Also, Pulmonology recommended an outpatient PET scan to screen for possible recurrence of the metastatic cancer if the hemoptysis or blood tinged sputum persists after treatment of the pneumonia. -Resume ASA and clopidogrel (3) Community acquired bacterial pneumonia: Code(s): J15.9 - Unspecified bacterial pneumonia Status: Acute Assessment and Plan: -See #1 (4) COPD (chronic obstructive pulmonary disease): Code(s): J44.9 - Chronic obstructive pulmonary disease, unspecified Status: Acute Assessment and Plan: Will resume home inhalers for discharge. Stopped steroid on admission. (5) Depressive disorder, not elsewhere classified: Code(s): F32.9 - Major depressive disorder, single episode, unspecified Status: Acute Assessment and Plan: Continue trazodone. (6) DM w/o complication type II, uncontrolled: Code(s): E11.65 - Type 2 diabetes mellitus with hyperglycemia Status: Acute Assessment and Plan: Will resume home medications for discharge. (7) Essential (primary) hypertension: Code(s): I10 - Essential (primary) hypertension Status: Acute Assessment and Plan: Continue home metoprolol. (8) Hypothyroidism: Qualifiers: Hypothyroidism type: acquired Qualified Code(s): E03.9 - Hypothyroidism, unspecified Code(s): E03.9 - Hypothyroidism, unspecified Status: Acute Assessment and Plan: TSH very low and Free t4 1.76 on levothyroxine 100 mcg daily. Will reduce levothyroxine due to over suppression and risk of atrial fibrillation. No known history of thyroid cancer.? 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 May benefit from outpatient PET scan to look for recurrence or more metastasis given this new hemoptysis. Discussed with patient that PCP will need to order the PET scan. (10) Mixed hyperlipidemia: Code(s): E78.2 - Mixed hyperlipidemia Status: Acute Assessment and Plan: Takes rosuvastatin and fenofibrate at home.? Continue. ? (11) Obstructive sleep apnea: Code(s): G47.33 - Obstructive sleep apnea (adult) (pediatric) Status: Acute Assessment and Plan: Titrate CPAP to home settings. (12) Chronic pain syndrome: Code(s): G89.4 - Chronic pain syndrome Status: Acute Assessment and Plan: Takes fentanyl transdermal, duloxetine and pregabalin at home.? Continue.? (13) CAD (coronary artery disease): Code(s): I25.10 - Atherosclerotic heart disease of [place] coronary artery without angina pectoris Status: Acute Assessment and Plan: Takes aspirin and clopidogrel at home. Hold both d
[2022-07-12 07:07] LABS: ANA Cascade Screen Negative (Negative)
== END 2022-07-10 15:40 | disposition home or self-care (01) | DRG 193 ==
LOC: ANHED 13:56 → ANH3MEDSUR 16:27
PROVIDERS: Internal Medicine Critical Care Medicine; Internal Medicine Pulmonary Disease; Nurse Practitioner; Admitting Provider Internal Medicine; Emergency Provider Emergency Medicine; PCP Family Medicine; Visit Provider Family Medicine
DX: J18.9 Pneumonia, unspecified organism (principal); J96.01 Acute respiratory failure with hypoxia; C78.00 Secondary malignant neoplasm of unspecified lung; R04.2 Hemoptysis; J43.8 Other emphysema; J40 Bronchitis, not specified as acute or chronic; Z85.820 Personal history of malignant melanoma of skin; Z20.822 Contact with and (suspected) exposure to COVID-19; E03.9 Hypothyroidism, unspecified; E11.65 Type 2 diabetes mellitus with hyperglycemia; E11.42 Type 2 diabetes mellitus with diabetic polyneuropathy; E78.2 Mixed hyperlipidemia; F17.210 Nicotine dependence, cigarettes, uncomplicated; F32.9 Major depressive disorder, single episode, unspecified; F32.A Depression, unspecified; G89.4 Chronic pain syndrome; G47.33 Obstructive sleep apnea (adult) (pediatric); I10 Essential (primary) hypertension; I25.10 Atherosclerotic heart disease of native coronary artery without angina pectoris; Z79.82 Long term (current) use of aspirin; Z99.89 Dependence on other enabling machines and devices; Z79.02 Long term (current) use of antithrombotics/antiplatelets; Z95.5 Presence of coronary angioplasty implant and graft; Z90.49 Acquired absence of other specified parts of digestive tract; Z66 Do not resuscitate; Z90.710 Acquired absence of both cervix and uterus
CPT/HCPCS: 36415; 36600; 71046; 80048; 80053; 82375; 82805; 82948; 83036; 83050; 83605; 83735; 84439; 84443; 84480; 85025; 85610; 85730; 86038; 87040; 87070; 87205; 87486; 87502; 87581; 87633; 94640; 94660; 96365; 96367; 99285; A9270; C9803; G0378; J0456; J0696; J3475; U0003; U0005

== ENCOUNTER 2022-10-09 14:21 | Outpatient (CLI) | payer MEDICARE, SELFPAY ==
[2022-10-09 14:43] LABS: Basophils Absolute Auto 0.1 K/mm3 (0.0-0.1); Eosinophils Absolute Auto 0.1 K/mm3 (0-0.3); Eosinophils Percent Auto 1.5 % (0-4.4); Hematocrit 44.8 % (37.0-47.0); Hemoglobin 14.4 g/dL (12.0-15.0); Immature Granulocyte Absolute 0.03 K/mm3 (0.00-0.031); Immature Granulocyte Percent A 0.4 % (0-0.5); Lymphocytes Absolute Auto 2.61 K/mm3 (0.9-3.2); Lymphocytes Percent Auto 32.9 % (18.3-44.2); Mean Corpuscular HGB Conc 32.1 g/dl (32-36); Mean Corpuscular Volume 96.3 fl (80-100); Mean Platelet Volume 9.6 fl (7.4-10.4); Monocytes Absolute Auto 0.5 K/mm3 (0.1-0.6); Monocytes Percent Auto 6.4 % (2.6-8.5); Neutrophils Absolute Auto 4.6 K/mm3 (1.3-6.7); Neutrophils Percent Auto 57.8 % (45.5-73.1); Platelet Count Result 205 k/mm3 (150-375); Red Blood Count 4.65 M/mm3 (4.2-5.4); Red Cell Distribution Width 14.3 % (11.5-14.5); White Blood Count 7.9 K/mm3 (4.5-10.0)
[2022-10-09 16:32] LABS: Alanine Aminotransferase 15 U/L (6-35); Alkaline Phosphatase 44 U/L (38-126); Anion Gap 4 mmol/L (8-16); Aspartate Amino Transferase 25 U/L (14-36); Bilirubin,Total 0.6 mg/dL (0.2-1.3); Blood Urea Nitrogen 14 mg/dL (7-17); Calcium 8.7 mg/dL (8.4-10.2); Carbon Dioxide 34 mmol/L (22-30); Chloride 101 mmol/L (98-107); Estimated Glomerular Filt Rate > 60; Glucose 108 mg/dL (65-110); Potassium 3.8 mmol/L (3.4-5.0); Sodium 139 mmol/L (137-145)
[2022-10-12 14:04] LABS: Erythropoietin (EPO) 34.2 mIU/mL (2.6-18.5)
[2022-10-16 11:26] LABS: CALR Exon 9 Mutation Not Detected (Not Detected); CSF3R Exon 14/17 Mutation Not Detected (Not Detected); JAK2 Exon 12 Mutation Not Detected (Not Detected); JAK2 V617F Mutation Not Detected (Not Detected); MPL Exon 10 Mutation Not Detected (Not Detected); Specimen Source Blood
== END 2022-10-09 14:22 | disposition home or self-care (01) ==
LOC: ANHLAB 14:22
PROVIDERS: PCP Family Medicine; Visit Provider Internal Medicine Hematology & Oncology
DX: D75.1 Secondary polycythemia (principal)
CPT/HCPCS: 36415; 80053; 81219; 81270; 81279; 81339; 81479; 82668; 85025